=== PATIENT | female | born 1965 | race Caucasian/White ===

== ENCOUNTER 2017-03-29 06:35 | Inpatient (IN) | payer OTHER ==
[~2017-03-29] VITALS: Ht 160 cm; Wt 59.3 kg
--- NOTE | ~2017-03-29 | CON ---
PATIENT'S NAME: ERICKA GARRISON [facility] AGE: 52 Y [address] ROOM: [place] [address] LOCATION: [facility] ADMIT DATE: 03/29/2017 Consultation DISCHARGE DATE: FAMILY PHYSICIAN: PHYSICIANFER ATTENDING PHYSICIAN: Lisa Gallo DATE OF CONSULTATION: 04/12/2017 REFERRING PHYSICIAN: Dr. Silver. REASON FOR CONSULTATION: Scalp wound. HISTORY OF PRESENT ILLNESS: This is a 52-year-old female patient who was admitted to [facility] with a subarachnoid hemorrhage. She is status post left craniotomy with aneurysm clipping on 03/29/[address] Gallo. Tamms intact to left scalp. No other skin issues noted. Long-standing history of tobacco use. The patient denies pain. Fair oral intake. No constitutional symptoms. PAST MEDICAL HISTORY: Anxiety and headaches. PAST SURGICAL HISTORY: Hysterectomy, hernia repair, appendectomy. FAMILY HISTORY: Positive for diabetes and high blood pressure. SOCIAL HISTORY: The patient is from [place]. She is a pack per day smoker and has done so for the last 35 years. She denies alcohol use. ALLERGIES: NO KNOWN DRUG ALLERGIES. CURRENT MEDICATIONS: Please refer to the medication administration record. REVIEW OF SYSTEMS: Pertinent positives are addressed in HPI and all others are negative. PHYSICAL EXAMINATION: PATIENT'S NAME: ERICKA GARRISON [facility] AGE: 52 Y [address] ROOM: [place] [address] LOCATION: [facility] ADMIT DATE: 03/29/2017 Consultation DISCHARGE DATE: FAMILY PHYSICIAN: PHYSICIAN, FER ATTENDING PHYSICIAN: Lisa Gallo VITAL SIGNS: Temperature 99.1, pulse 74, respirations 16, blood pressure 154/65, pulse oximetry 95%. Height 5 feet 3 inches and weight 53.9 kg. GENERAL: The patient is alert. HEENT: Please see scalp assessment. CARDIOVASCULAR: Deferred. ABDOMEN: Flat. EXTREMITIES: No edema. Palpable pedal pulses. Heels intact. SKIN: Intact dorinda to the left scalp. Small amount of dry blood noted. No drainage. No other skin issues noted. Groin folds intact and buttocks intact. LABORATORY DATA: Please refer to the patient's chart. ASSESSMENT/PLAN: Again this is a 52-year-old female patient who was admitted to [facility] with a subarachnoid hemorrhage. She is status post left craniotomy with the aneurysm clipping. 1. Scalp incision, approximated with dorinda. Status post left craniotomy. I instructed nursing to gently cleanse scalp with soap and water daily. No need for dressing at this time. We will defer to Dr. Gallo for further care. No other skin issues noted. ZACHERY BARRY APRN FOR MD OBINNA MEHTA/winsome /[id number] d: 04/12/171911 t: 04/20/17 1156, CONSULTATION REPORT
--- NOTE | ~2017-03-29 | CON ---
PATIENT'S NAME: ANNIE GIMENEZ [facility] AGE: 51 Y [address] ROOM: [place] [address] LOCATION: GICU ADMIT DATE: 03/29/2017 Consultation DISCHARGE DATE: FAMILY PHYSICIAN: PHYSICIAN, NO ATTENDING PHYSICIAN: Lisa Gallo DATE OF CONSULTATION: 03/29/2017 REFERRING PHYSICIAN: Lisa Gallo MD REASON FOR CONSULTATION: Medical management, was in the intensive care unit. HISTORY OF PRESENT ILLNESS: Ms. Gimenez is a 51-year-old female, who is unable to give a past medical history given her current condition. According to the chart on the morning of her presentation, she had a headache at 1:00 a.m., took couple of Excedrin tablets, and then was found to be nauseous and unresponsive. The patient then according to her son was also received chest compression as well as mouth-to- mouth resuscitation in the field and was transferred to [facility] where she was found to have a ruptured aneurysm with subarachnoid hemorrhage. PAST MEDICAL HISTORY: Unknown. CURRENT MEDICATIONS: Unknown. ALLERGIES TO MEDICATIONS: Unknown. SOCIAL HISTORY: Unknown. FAMILY HISTORY: Unknown. REVIEW OF SYSTEMS: Unable to be completed given the patient's current condition. PHYSICAL EXAMINATION: GENERAL: The patient is intubated and sedated. HEART: Regular rate and rhythm. No murmurs, gallops could be noted on her exam. CHEST: Clear to auscultation bilaterally. No wheezes, rhonchi, or rales. ABDOMEN: Soft, nontender, and nondistended. She does have positive bowel PATIENT'S NAME: ANNIE GIEMNEZ [facility] AGE: 51 Y [address] ROOM: [place] [address] LOCATION: [facility] ADMIT DATE: 03/29/2017 Consultation DISCHARGE DATE: FAMILY PHYSICIAN: PHYSICIAN, NO ATTENDING PHYSICIAN: Lisa Gallo sounds. NEUROLOGIC: The patient's pupils are equal, round, and reactive to light. Limited neurological exam, completed given the patient is currently intubated, sedated with the partial postoperative paralysis. VITAL SIGNS: Stable and have been reviewed. LABORATORY DATA: Showed sodium 135, potassium 3.9, chloride 107, CO2 of 21, BUN of 12, and creatinine of 0.7. Her current glucose is 167, her AST and ALT are 26 and 19, and her alkaline phosphatase is 72. Her CBC shows a white blood cell count of 11.8, hemoglobin 11.2, hematocrit 32.5, and current platelets are 186,000. Her PT, PTT, and INR 27, 10.9, and 1.04 respectively. Her arterial blood gas showed a pH of 7.38, pCO2 of 37, pO2 of 204, and a calculated bicarbonate of 21.9 that is on 60% FiO2. ASSESSMENT AND PLAN: Ms. Annie Gimenez is a 51-year-old female, postoperative day #0 from middle cerebral artery aneurysm clipping. 1. Acute respiratory failure. 2. Acute subarachnoid hemorrhage status post middle cerebral artery aneurysm clipping. 3. Hypertension. 4. Intracranial hypertension. Plan: Given the patient's current state, we will start the patient on some nimodipine prophylactically as well as Keppra for seizure prevention. Avoid anticoagulants and provide her with SCDs as well as PPI she continues on the vent control her blood pressures with maximal blood pressure of 180 and blood pressures greater than 140, keep the patient euvolemic and lap hand tool her intracranial hypertension with hypertonic saline. I spent a total of 60 minutes of critical care time with this patient treating her respiratory failure as well as her intracranial hypertension. MD DUNG BAER/winsome /[id number] d: 04/01/17 1533 t: 04/19/17 1136, CONSULTATION REPORT
--- NOTE | ~2017-03-29 | OR ---
PATIENT'S NAME: ERICKA GARRISON [facility] AGE: 51 Y [address] 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 PROCEDURE PERFORMED: 1. Left frontotemporal craniotomy and clipping of left middle cerebral artery aneurysm. 2. Evacuation of intracerebral hematoma. 3. Placement of right frontal ventriculostomy for management of intraventricular hemorrhage. CO-SURGEON: Greg Castillo MD. ANESTHESIA: General. ANESTHESIA PROVIDER: Giuseppe Abel MD. HISTORY: The patient is a 51-year-old female who developed a sudden severe headache in the early hours of March 29, 2017. Imaging studies confirmed the ruptured left middle cerebral artery aneurysm producing subarachnoid, intraventricular, and intracerebral hemorrhages. The patient was evaluated at [facility] and then transferred to [facility] for definitive treatment. I discussed the situation with the patient's son who was the only family member present and explained the situation to him. I recommended the above procedures and discussed the benefits and risks with him. The patient's son gave consent for surgery. The patient was therefore taken to the operating room for surgery. Prior to coming to surgery, she went through a CT scan and got a CT angiogram, which confirmed the aneurysm. This was a very complex aneurysm requiring the assistance of the co-surgeon owing to its complexity and the associated hemorrhages in different parts of the brain. PROCEDURE IN DETAIL: In the operating room, the patient was placed in a PATIENT'S NAME: ERICKA GARRISON [facility] AGE: 51 Y [address] ROOM: [place] [address] LOCATION: GICU ADMIT DATE: 03/29/2017 OR/Procedure Report DISCHARGE DATE: FAMILY PHYSICIAN: PHYSICIAN, NO ATTENDING PHYSICIAN: Lisa Gallo supine position, anesthesia was induced, she was intubated, and appropriate support lines were placed. The patient had already had a Rudd catheter inserted and had received mannitol. The first procedure was insertion of a ventriculostomy. The patient's hair was clipped. The entry point for the ventriculostomy was marked out at 12.5 cm behind the right midpupillary line. The scalp was prepped and draped in a sterile fashion. Local anesthesia was infiltrated at the entry point. The incision was opened and held open with self-retaining retractors. Twist drill was used to drill a hole through the skull. The dura was coagulated. The catheter was tunneled under the scalp using a trocar. The catheter was brought out of the entry point. The catheter was inserted into the brain and blood- stained spinal fluid was obtained at first try. The ventricular catheter was then secured to the scalp. The entry point was closed with appropriate suture materials. Attention was then directed to the craniotomy. The patient's head was secured in a 3-pin Troy head sampler. Her head was turned slightly facing the right side with the neck in extension bringing the operative site to the highest point in the surgical field. An incision line was marked out in the left frontotemporal area, and the whole area was prepped and draped in a sterile fashion. Local anesthesia was infiltrated along the incision line. The incision was opened with a #10 blade. The fascia was opened separately and the muscle was also divided using the Bovie. The scalp was then peeled forward to expose the frontal and temporal areas of the skull. A scalp flap was held back with sutures attached to rubber bands. Bur holes were placed and the bur holes were connected with a footplate surrounding a flap. The dura was bulging slightly underneath the bone flap. The dura was then opened in a curvilinear fashion and flapped back over the scalp flap. The surface of the brain was heavily stained with subarachnoid and subpial blood. Hemostasis was achieved. A small opening was made into the middle temporal gyrus and almost immediately the hematoma was encountered. Using suction and gentle coagulation, the hematoma was evacuated, and the brain became even more slack with this maneuver. We then directed our attention to the area of the sylvian fissure where the aneurysm was located. Working in the sylvian fissure, some branches of the middle cerebral artery became visible. We decided to trace these branches until they led to the aneurysm. We exposed initially towards the entrance of the sylvian fissure and then retraced the arteries more towards the caudal end of the sylvian fissure, and during this process, we began to see the aneurysm. The [facility] retractor was set up and the frontal and PATIENT'S NAME: ERICKA GARRISON [facility] AGE: 51 Y [address] ROOM: [place] [address] LOCATION: [facility] ADMIT DATE: 03/29/2017 OR/Procedure Report DISCHARGE DATE: FAMILY PHYSICIAN: PHYSICIAN, NO ATTENDING PHYSICIAN: Lisa Gallo temporal lobes were gently to provide better visualization. The microscope was already brought in at this point, and a lot of this procedure was carried out under microscopic vision. As the dissection progressed, the aneurysm became more visible. It was a bilobed aneurysm with a number of blood vessels looping around the lobes of the aneurysm. This created a very challenging situation that required careful dissection of the aneurysm to prevent its rupture while at the same time preserving the vessels that were very intimately associated with the aneurysm. There was a small rupture during the procedure, but this was easily controlled with a piece of Gelfoam and cottonoid, and the blood pressure was lowered at this point, and the bleeding stopped within a very short time. We resumed dissection around the aneurysm until we were able to see all the vessels leading off from it and see most of the dome of the aneurysm. We then selected a right-angled fenestrated clip and placed this across the aneurysm neck, taking care to preserve all the surrounding vessels. We noticed that there was still some bleeding from the aneurysm even after it had been clipped and then the clip was readjusted a few times to ensure satisfactory obliteration of the aneurysm. We then noticed there was a small area of aneurysm filling from one of the lobes of the aneurysm. A smaller clip was applied across this residual dome and this sealed the aneurysm completely. A careful search was made for any compromised vessels and none of the major vessels were compromised. Irrigation was used to wash out the subarachnoid blood around the blood vessels to reduce the risk of vasospasm. Some more hematoma was evacuated from the initial cavity, which at this point had connected up to the area where the aneurysm was being dissected. The hematoma cavity was inspected to ensure that there was no bleeding going on. Some cotton ball was used to tamponade any areas of bleeding and then Surgicel was used to control the rest of the oozing. Having completed the clipping of the aneurysm, the dura was closed with a running Nurolon suture. The bone flap was replaced with mini-titanium plates. The scalp was closed in layers using appropriate suture materials and staple was used to close the skin. The patient's head was taken out of the Troy head sampler. A sterile dressing was applied to cover, both the ventriculostomy as well as the craniotomy. The patient was maintained intubated and brought back to the intensive care unit to continue her recovery. I was present during the entire procedure with Dr. Greg Castillo serving as PATIENT'S NAME: ERICKA GARRISON [facility] AGE: 51 Y [address] ROOM: [place] [address] LOCATION: [facility] ADMIT DATE: 03/29/2017 OR/Procedure Report DISCHARGE DATE: FAMILY PHYSICIAN: PHYSICIAN, NO ATTENDING PHYSICIAN: Lisa Gallo co-surgeon as mentioned earlier because of the complex nature of this aneurysm. I felt that the procedure proceeded without any significant complications. There was a slight rupture, which was controlled readily. Estimated blood loss was less than 500 mL, and there was no blood transfusion given. Swabs, needles, and instruments were all accounted for at the end of the case. The patient's prognosis is guarded at this time owing to the large size of the hemorrhage as well as the potential complications of vasospasm and hydrocephalus. With the surgery, however, the patient's main danger has been eliminated. She will be monitored in the intensive care unit for any subsequent complications. MD JAGJIT PAULINOO/modl /[id number] CC: MD Sandip Muñoz MD [place], [place] d: 04/02/17 0003 t: 08/29/17 1932, OPERATIVE SUMMARY
--- NOTE | ~2017-03-29 | OR ---
PATIENT'S NAME: ERICKA GARRISON [facility] AGE: 51 Y [address] ROOM: [place] [address] LOCATION: GICU ADMIT DATE: 03/29/2017 OR/Procedure Report DISCHARGE DATE: FAMILY PHYSICIAN: PHYSICIAN, NO ATTENDING PHYSICIAN: Lisa Gallo SURGEON: Giuseppe Abel MD WINCH DRIVER: DATE OF PROCEDURE: 03/29/2017 PROCEDURE PERFORMED: Insertion of central venous catheter. INDICATION FOR PROCEDURE: Operative hemodynamic monitoring and access. DESCRIPTION OF PROCEDURE: After a brief time-out was completed verifying the correct patient, procedure, and site, the patient was placed in a position appropriate for central line placement. The patient's left clavicle was prepped and draped in the usual sterile fashion. 1 mL of 1% lidocaine used to anesthetize the surrounding skin. Using the Seldinger technique, a 4-lumen 8.5-German 20 cm catheter was introduced into the left subclavian vein. The guidewire then was removed. Each lumen of the catheter was evacuated from air and then flushed with sterile saline. The catheter then was sutured in place, and sterile Tegaderm was applied. A postprocedural chest x-ray used to confirm the position of the catheter found the catheter to be in adequate position with no procedural complications. MD DUNG BAER/winsome /[id number] d: 04/01/17 1524 t: 04/19/17 1138, OPERATIVE SUMMARY
--- NOTE | ~2017-03-29 | CON ---
PATIENT'S NAME: ERICKA GARRISON [facility] AGE: 52 Y [address] ROOM: [id number] [place], [place] [address] LOCATION: [facility] ADMIT DATE: 03/29/2017 Consultation DISCHARGE DATE: FAMILY PHYSICIAN: PHYSICIAN, FER ATTENDING PHYSICIAN: Lisa Gallo REFERRING PHYSICIAN: Lisa Gallo MD CHIEF COMPLAINT: Headache. REASON FOR CONSULTATION: Fever, encephalopathy, and headache. HISTORY OF PRESENT ILLNESS: This is a 52-year-old female, who was admitted on March 29, 2017, because of headache and the patient was found to have ruptured left middle cerebral artery aneurysm with resultant subarachnoid, intracerebral, and intraventricular hemorrhage and also found to have a small right aneurysm that was not ruptured. The patient underwent a left frontotemporal craniotomy, clipping of the left middle cerebral artery aneurysm, evacuation of the intracerebral hematoma, and placement of right frontal ventriculostomy for management of intraventricular hemorrhage on March 29, 2017. After the procedure, the patient has been doing well and since yesterday the patient has been complaining of headache that is diffuse and for the last few days the patient has also been picking on the right frontal ventriculostomy tube that was removed a few days earlier. That area of the ventriculostomy tube has been getting swollen, red, and tender; however, without drainage. Since yesterday, the son has also noticed that the patient has been behaving confused, but no slurred speech, just that she does not answer questions and has been complaining of a headache that is diffuse, and the son noticed that the area where the ventriculostomy tube was removed has become red, swollen, and tender, and as I mentioned before, the patient has been picking with her fingers in that area for the last few days. Due to the fever of temperature 101.4 and also encephalopathy and also pain and also headache and also an inflammation and tenderness and erythema in the ventriculostomy tube area that was removed, a hospitalist consult was placed for evaluation. REVIEW OF SYSTEMS: As mentioned in the history of present illness. Only that the patient complained to me was about the headache that is diffuse, otherwise she denies any other symptoms I asked her. ALLERGIES: NONE. PATIENT'S NAME: ERICKA GARRISON [facility] AGE: 52 Y [address] ROOM: [id number] [place], [place] [address] LOCATION: [facility] ADMIT DATE: 03/29/2017 Consultation DISCHARGE DATE: FAMILY PHYSICIAN: PHYSICIAN, FER ATTENDING PHYSICIAN: Lisa Gallo HOME MEDICATIONS: At home, the patient takes: 1. Tylenol plus caffeine. 2. Excedrin tablets 1 tablet p.o. daily p.r.n. for headache. PAST MEDICAL HISTORY: None prior to this admission. SOCIAL HISTORY: Currently, the patient denies any cigarette or illegal drug or alcohol use at the present or in the past. This is according to the patient. FAMILY HISTORY: The patient could not remember details about her parents' health. PAST SURGICAL HISTORY: The patient denies any, this is per the patient's answer. Based on the records, It did show that she had a hysterectomy and also tubal ligation. PHYSICAL EXAMINATION: VITAL SIGNS: At the time of my evaluation, temperature was 101.4, heart rate was 98, blood pressure was 160/67, and saturation was 96% on room air. GENERAL APPEARANCE: Alert. Currently, the patient is not in distress. On my examination, the patient is not disoriented, but she just answers the questions very slowly and sometimes she does not answer my question. In moderate distress due to headache. HEENT: Her pupils are equally round and reactive to light. Pupil size about 4 mm bilaterally and extraocular muscles are also intact. Anicteric sclerae. Nasal turbinates are normal bilaterally. Moist oral mucosa. On the left parietal area, the scar from the incision site looks clean and no active drainage. The right frontal area where the ventriculostomy tube was removed, there is a tender bump that is red and erythematous, but no active drainage. NECK: No JVD. CARDIOVASCULAR: Regular rate and rhythm. Normal S1, S2. No murmur, no rubs, no gallops. RESPIRATORY: Clear to auscultation. No rales, no rhonchi, no wheezing, no crackles. ABDOMEN: Soft, nontender, nondistended, bowel sounds present, and no mass. EXTREMITIES: No edema in upper or lower extremities. SKIN: No ulcer, no rash, no cyanosis. NEUROLOGICAL: Cannot perform a full neurological exam given the patient does not follow commands due to her encephalopathy. No facial droop. No slurred speech and no facial droop. The patient would not cooperate to test the strength or the sensation or perform cranial nerve 2 through 12. However, she PATIENT'S NAME: ERICKA GARRISON [facility] AGE: 52 Y [address] ROOM: [id number] [place], [place] [id number] LOCATION: [facility] ADMIT DATE: 03/29/2017 Consultation DISCHARGE DATE: FAMILY PHYSICIAN: PHYSICIAN, NO ATTENDING PHYSICIAN: Lisa Gallo does comply with visual field testing and it was intact. SKIN: Scar tissue with dorinda on the left side of the head which was intact without any findings to suggest discharge or infection. On the right frontal forehead, there is a bump that is red and tender and appeared swollen, but no active drainage. LABORATORY DATA: Lactic acid 0.9. White blood cell 14.3, hemoglobin 9.6, hematocrit 28.5, platelet 427, glucose 121, BUN 12, creatinine 0.3. Sodium 137, potassium 3.7, chloride 105, CO2 of 23, calcium 8.9, total protein 6.9, albumin 3.0. AST 30, ALT 33, alkaline phosphatase 103, total bilirubin 0.3, phosphorus 4.1, magnesium 1.9. INR 0.98, PTT 24. Urinalysis from April 10, 2017, at 9:00 p.m. showed negative for UTI. GFR more than 60. Procalcitonin less than 0.05. IMAGING STUDIES: Chest was done and the official report is pending. Based on my review, it was unremarkable. CT of the head without contrast performed just now and the preliminary report was read as no new acute intracranial process. Stable left side postoperative changes. No new bleed. Trace hemorrhage in the left sylvian fissure is slightly decreased from the prior study. Please follow up with official report reading in the morning. ASSESSMENT AND PLAN: 1. Regarding her SIRS with fever, encephalopathy, and headache: The sepsis order set has been already completed and is in the chart. CT Head without contrast based on the preliminary review which I also personally spoke to the on-call radiologist, there was no finding to suggest new bleed or anything to explain the acute encephalopathy. Given that she does have leukocytosis and fever and also the right frontal headache where the ventriculostomy tube removed and it looks red, swollen, and tender possibly secondary to the patient's finger's frequent poking at that area in the last few days and may have gotten infected. 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 after midnight for possible lumbar puncture. Blood cultures already obtained, please follow up. Please also consult Infectious Disease by telephone at anytime and also this Tuesday if they are in town. Further plan depends on clinical course. I also went over the plan of care with Dr. Gallo over the phone after my PATIENT'S NAME: ERICKA GARRISON [facility] AGE: 52 Y [address] ROOM: [address] [address] LOCATION: [facility] ADMIT DATE: 03/29/2017 Consultation DISCHARGE DATE: FAMILY PHYSICIAN: PHYSICIAN, NO ATTENDING PHYSICIAN: Lisa Gallo recommendations as above. I also updated the patient's son and daughter at the bedside about the current plan of care. Chest x-ray was unremarkable. UA was unremarkable. Therefore, the focus here for now will be in the central nervous system. 2. Regarding her recent history of cerebral aneurysm, status post repair: Defer to Neurosurgery. No new head bleed on the CT of the head without contrast performed today. Further plan will depend on clinical course. Time spent in care on the day of consultation 70 minutes where 20 minutes was spent on chart review and the remaining of the time was spent on interview and physical examination, and also on counseling. The counseling includes covering Dr. Gallo to go over the plan of care with him after my recommendations and also by covering the on-call radiologist to verify the report of the CT of the head without contrast and this time also includes going over plan of care with the patient's son, the patient, and the patient's daughter at the bedside and answered all their questions and concerns to their satisfaction, and I went over the plan of care in detail with each one of them in person. Further plan will depend on clinical course. ETTA HOUGH MD CC/lindyl /[id number] d: t: 04/11/17 0801, CONSULTATION REPORT
--- NOTE | ~2017-03-29 | HP ---
PATIENT'S NAME: ANNIE GIMENEZ [facility] AGE: 51 Y [address] ROOM: [place] [address] LOCATION: [facility] ADMIT DATE: 03/29/2017 History & Physical DISCHARGE DATE: FAMILY PHYSICIAN: PHYSICIAN, UNKNOWN ATTENDING PHYSICIAN: Lisa Gallo DATE OF SERVICE: 03/29/2017 PATIENT IDENTIFICATION: Annie Gimenez is a 51-year-old female. PRESENTING COMPLAINT: Headache. HISTORY OF PRESENT ILLNESS: History was obtained from referring physician as the patient herself is unable to provide a history at this time. According to the referring physician, the patient had a sudden onset of severe headache about 1:00 a.m. this morning. She also had nausea and became unresponsive. The patient has had a history of chronic frequent headaches and takes Excedrin regularly. She took 2 tablets at midnight last night. According to the patient's son, the patient also had some elevated blood pressure while at the dentist 4 days ago. With the onset of her headache this morning and reduced responsiveness, she was taken to the emergency room at [facility]. She was evaluated and a CT of her head showed a ruptured aneurysm with subarachnoid hemorrhage. The patient was therefore transferred to [facility] for evaluation and treatment. PAST MEDICAL HISTORY: Significant for previous hysterectomy and tubal ligation. There is no history of any heart problems or strokes. CURRENT MEDICATIONS: Not available at this time. ALLERGIES: NONE. 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 PATIENT'S NAME: ANNIE GIMENEZ [facility] AGE: 51 Y [address] ROOM: [place] [address] LOCATION: [facility] ADMIT DATE: 03/29/2017 History & Physical DISCHARGE DATE: FAMILY PHYSICIAN: PHYSICIAN, UNKNOWN ATTENDING PHYSICIAN: Lisa Gallo FAMILY HISTORY: There is no family history available at this time. REVIEW OF SYSTEMS: Unable to obtain a full review of systems as the patient is not very responsive currently. PHYSICAL EXAMINATION: GENERAL: On examination, the patient is a middle-aged female, who was met on arrival in the ER at 6:50 a.m. on March 29, 2017. She was on a gurney. VITAL SIGNS: In the ER, blood pressure systolic in the 130s. The patient had already received some labetalol en route. NEUROLOGIC: The patient is drowsy. She is nonverbal. She grunts to pain and tries to open her eyes. The patient moves her left side to localization. She flexes the right side. She is noticeably weaker in the right arm. EYES: Pupils are 3 mm bilaterally and reactive. CARDIOVASCULAR: Heart sounds present. RESPIRATORY: The patient is breathing spontaneously. GENITOURINARY: The patient has a Rudd catheter in place. HEAD: Her head is atraumatic. EYES AND EARS: No evidence of trauma. SKIN: No skin rashes or skin masses. REVIEW OF IMAGING STUDIES: The patient has had a head CT scan performed in [place]. The CT scan shows a hemorrhage in the left temporal lobe with associated subarachnoid hemorrhage and intraventricular hemorrhage. Appearances are consistent with a ruptured left middle cerebral artery aneurysm with intracerebral, intraventricular, and subarachnoid hemorrhage. TREATMENT RENDERED: The patient was started on mannitol to control her increased intracranial pressure. She was already on labetalol for blood pressure control as well. She was then taken to the CT scan suite and had a CT angiogram. The CT angiogram confirmed a 6 mm left middle cerebral artery aneurysm. This is likely the source of the patient's hemorrhage. The patient was taken from the CT suite directly to the OR, got into the OR room at 7:30 a.m. I spoke to the patient's son while she was having a CT scan and explained the situation to him. I discussed with him that the patient has a life-threatening condition, a ruptured aneurysm and that the patient is being taken to the operating room for surgery. I discussed the procedure of ventriculostomy placement as well as craniotomy and clipping of aneurysm with the patient's son. I discussed the risks of the surgery including , stroke, and residual disability. I also discussed the benefits, which would PATIENT'S NAME: ANNIE GIMENEZ [facility] AGE: 51 Y [address] ROOM: [id number] [place], [place] [address] LOCATION: [facility] ADMIT DATE: 03/29/2017 History & Physical DISCHARGE DATE: FAMILY PHYSICIAN: PHYSICIAN, UNKNOWN ATTENDING PHYSICIAN: Lisa Gallo be to remove the hemorrhage and try and prevent a repeat hemorrhage by clipping the aneurysm. The patient's son understood the benefits and risks of the procedure and gave consent to proceed. At this time, the patient is in the operating room, getting ready for surgery. MD KAYDEN PAULINO/winsome /[id number] D: [id number] T: [id number] HISTORY & PHYSICAL
--- NOTE | ~2017-03-29 | CON ---
PATIENT'S NAME: ERICKA GARRISON [facility] AGE: 51 Y [address] ROOM: [place] [address] LOCATION: [facility] ADMIT DATE: 03/29/2017 Consultation DISCHARGE DATE: FAMILY PHYSICIAN: PHYSICIAN, NO ATTENDING PHYSICIAN: Lisa Gallo REFERRING PHYSICIAN: Lisa Gallo MD Consult for Dr. Gallo. This 51-year-old lady is referred for [facility] rehab evaluation. She is status post: 1. Left frontotemporal craniotomy and clipping of the left middle cerebral artery aneurysm. 2. Evacuation of intracerebral hemorrhage on the left side of the brain. 3. Placement of right frontal ventriculostomy drain to manage intraventricular hemorrhage, which is now discontinued. The surgery was done on 03/29/2017, details on record. HISTORY AND PHYSICAL: She had severe headache, did have nausea and vomiting and then she was unresponsive, has history of possible hypertension and migraine. She is now on ICU, alert, not able to orient at all. She is able to talk. Her voice is clear, but she is with short attention span, apraxic at time, on and off needing modeling, sometimes she is disoriented and agitated easily. She has short attention span and cannot really bring out what she wants to say. Vitals: Blood pressure 210/87 to 174/85, temperature 101.5 to 99.5, pulse 80, respirations 20. She is 5 feet 3 inches and weighs 61.4 kg. Her voice is clear and not wet. Tongue and soft palate are moving symmetrical. There is no facial droop at the present time. There is no visual cut or neglect. She is easily agitated and can move all 4 without difficulty, maybe a little bit slower on the left side, less coordinated rather than slower. MEDICATIONS: She is on the following medications: 1. MOM. 2. Florinef. 3. Mannitol. 4. NaCl 0.9%. PATIENT'S NAME: ERICKA GARRISON [facility] AGE: 51 Y [address] ROOM: [place] [address] LOCATION: [facility] ADMIT DATE: 03/29/2017 Consultation DISCHARGE DATE: FAMILY PHYSICIAN: PHYSICIAN, NO ATTENDING PHYSICIAN: Lisa Gallo 5. Johnson-Synephrine. 6. Hypertonic saline. 7. Labetalol. 8. Mag sulfate. 9. Nicotine patch. 10. Apresoline. 11. Dilaudid. 12. Nimotop. 13. Glucagon. 14. Dextrose. 15. Glucose. 16. Insulin regular aggressive scale. 17. Tylenol. 18. Artificial Tears. 19. Keppra. 20. K phosphate. 21. KCl. ASSESSMENT AND PLAN: We will start her on PT, OT, speech. Please see the orders. I plan to follow on her and if she is not able to be discharged to home on taking care at home, I will re-evaluate for rehab admission. At the present time, she has good ability to move all 4. We will watch her alongside with you. Thank you for this referral. I did explain all this to her daughter. She verbalized understanding and agreement. MD EUGENIO ALLEN/modl /[id number] d: 04/05/171902 t: 04/06/17 07, CONSULTATION REPORT
[2017-03-29 08:37] LABS: BASOPHIL % 0.3 %; HEMATOCRIT 32.5 % (33.0-46.0); HEMOGLOBIN 11.2 g/dL (10.0-15.0); IMMATURE GRANULOCYTE # 0.1 K/uL (0.0-0.3); IMMATURE GRANULOCYTE % 0.4 %; LYMPHOCYTE # 0.4 K/uL (0.8-4.0); LYMPHOCYTE % 3.2 %; MCH 33.5 pg (27.0-34.0); MCHC 34.5 gm/dL (32.0-36.5); MCV 97.3 fl (83.0-98.0); MONOCYTE # 0.8 K/uL (0.0-1.0); MONOCYTE % 6.5 %; MPV 9.3 fl (9.4-12.4); NEUTROPHIL # (ANC) 10.6 K/uL (1.8-7.8); NEUTROPHIL % 89.6 %; NRBC % 0 /100WBC (0-0.00); PLATELET COUNT 186 K/uL (150-450); RBC 3.34 M/uL (3.50-5.50); RDW-CV 12.6 % (11.9-14.6); WBC 11.8 K/uL (4.0-11.0)
[2017-03-29 08:45] LABS: INR - (THERAPEUTIC) 1.04 (0.92-1.07); PROTIME 10.9 SECONDS (9.8-11.4); PTT 27 SECONDS (25-32)
[2017-03-29 08:53] LABS: ALBUMIN 2.9 gm/dL (3.5-5.0); ALK PHOS 72 IU/L (33-138); ALT 19 IU/L (12-78); ANION GAP 10.9 (10.0-19.0); AST 26 IU/L (10-40); BLOOD UREA NITROGEN 12 mg/dL (6-24); CHLORIDE 107 mMol/L (96-110); CO2 21 mMol/L (22-32); CREATININE 0.7 mg/dL (0.5-1.1); POTASSIUM 3.9 mMol/L (3.7-5.1); SODIUM 135 mMol/L (135-145); TOTAL BILIRUBIN 0.3 mg/dL (0.0-1.5); TOTAL PROTEIN 5.6 g/dL (6.0-8.4)
[2017-03-29 14:18] LABS: BICARBONATE 22.1 mmol/L (18.0-23.0); PCO2 43 mmHg (35-45); PO2 432 mmHg (80-90); SODIUM 137 mEq/L (135-145)
[2017-03-29 14:19] LABS: POTASSIUM 4.3 mEq/L (3.7-5.1)
[2017-03-29 15:16] LABS: BICARBONATE 21.9 mmol/L (18.0-23.0); PCO2 37 mmHg (35-45)
[2017-03-29 15:18] LABS: PO2 204 mmHg (80-90)
--- NOTE | 2017-03-29 18:00 | NUR ---
SIGNIFICANT EVENT: PATIENT NOT ON ANY SEDATION DRIPS CURRENTLY AND SINCE 1500 HOUR. PATIENT WAS ON PROPOFOL. PATIENT DOES NOT OPEN EYES SPONT OR TO VOICE. PUPILS EQUAL, SLUGGISH REACTION. PATIENT HAS R) ICP/VENTRIC, INTACT, NO COMPLICATIONS. VENTRIC OPEN AT ALL TIMES PER MD ORDER. ICP 0-8. TOTAL OF 35ML OF CSF DRAINED THIS SHIFT, PIN-BLOOD TINGED. PATIENT WITHDRAWS TO PAIN IN ALL BUR R) UPPER EXTREMITY. VERY SLIGHT SPONT MOVEMEMENTS NOTED AT THE END OF THE SHIFT. PATIENT HAS BEEN IN SINUS RHYTHM, SIENA AT TIMES, HR 45-55. PULSES PALPABLE THROUGHOUT. BP STABLE, HYDRALAZINE 10 MG IV GIVEN X1 FOR SBP 170-180S PER MD ORDER. CPP GOAL 65-100, SBP LESS THAN 150. AFEBRILE. PATIENT CONTINUES TO REQUIRE VENT SUPPORT, SATS 99-100%/ PEEP 5, TV 450, RR 15 A/C MODE 60% FIO2, OVERBREATHS VENT SETTINGS. BOWEL SOUNDS PRESENT, NO BM. AGUILAR INTACT, ADEQUATE URINE OUTPUT. NO NEW SKIN ISSUES NOTED. R) SUBCLAVIAN IV INFUSING NS WITH KCL AT 75ML/HR, NO COMPLICATIONS. 2 PIV SALINE LOCKED, NO COMPLICATIONS. FOLLOW UP: CONT TO MONITOR, HOURLY NEUROS. REPORT ANY ABNORMALITITES
[2017-03-29 20:01] LABS: BICARBONATE 22.1 mmol/L (18.0-23.0); PCO2 40 mmHg (35-45)
[2017-03-29 20:02] LABS: PO2 130 mmHg (80-90)
[2017-03-29 20:15] LABS: ALBUMIN 3.1 gm/dL (3.5-5.0); BLOOD UREA NITROGEN 9 mg/dL (6-24); CALCIUM 8.2 mg/dL (8.5-10.5); CO2 21 mMol/L (22-32); CREATININE 0.6 mg/dL (0.5-1.1); PHOSPHORUS 3.9 mg/dL (2.5-4.9)
[2017-03-29 20:17] LABS: CHLORIDE 117 mMol/L (96-110); SODIUM 146 mMol/L (135-145)
--- NOTE | 2017-03-30 03:47 | NUR ---
Patient currently ventilated. FiO2 weaned down to 40% this shift. O2 sats were 100% throughout the shift. ETCO2 was 29. Breathsounds clear in the upper lobes bilaterally and clear and diminished in the bases bilaterally. Suctioning scant to small amounts of amy thick secretions. Will continue to monitor patient.
[2017-03-30 04:18] LABS: BICARBONATE 21.9 mmol/L (18.0-23.0); LACTATE 1.1 mEq/L (0.50-1.60); PCO2 37 mmHg (35-45)
[2017-03-30 04:19] LABS: PO2 158 mmHg (80-90)
[2017-03-30 04:40] LABS: ALBUMIN 2.9 gm/dL (3.5-5.0); ALK PHOS 65 IU/L (33-138); ALT 22 IU/L (12-78); AST 37 IU/L (10-40); BLOOD UREA NITROGEN 9 mg/dL (6-24); CALCIUM 8.1 mg/dL (8.5-10.5); CO2 21 mMol/L (22-32); CREATININE 0.6 mg/dL (0.5-1.1); PHOSPHORUS 2.3 mg/dL (2.5-4.9); POTASSIUM 3.5 mMol/L (3.7-5.1); TOTAL PROTEIN 5.8 g/dL (6.0-8.4)
[2017-03-30 04:41] LABS: ANION GAP 11.5 (10.0-19.0); CHLORIDE 120 mMol/L (96-110); SODIUM 149 mMol/L (135-145); TOTAL BILIRUBIN 0.5 mg/dL (0.0-1.5)
[2017-03-30 04:51] LABS: BASOPHIL % 0.1 %; HEMOGLOBIN 10.6 g/dL (10.0-15.0); IMMATURE GRANULOCYTE # 0.1 K/uL (0.0-0.3); IMMATURE GRANULOCYTE % 0.4 %; LYMPHOCYTE # 0.5 K/uL (0.8-4.0); LYMPHOCYTE % 3.7 %; MCH 32.8 pg (27.0-34.0); MCHC 33.1 gm/dL (32.0-36.5); MCV 99.1 fl (83.0-98.0); MONOCYTE # 1.1 K/uL (0.0-1.0); MONOCYTE % 7.4 %; MPV 10.1 fl (9.4-12.4); NEUTROPHIL # (ANC) 12.6 K/uL (1.8-7.8); NEUTROPHIL % 88.4 %; NRBC % 0 /100WBC (0-0.00); PLATELET COUNT 192 K/uL (150-450); RBC 3.23 M/uL (3.50-5.50); RDW-CV 13.5 % (11.9-14.6); WBC 14.2 K/uL (4.0-11.0)
[2017-03-30 04:56] LABS: PROTIME 10.5 SECONDS (9.8-11.4)
--- NOTE | 2017-03-30 05:32 | NUR ---
Significant Event: Pt is currently sedated with propofol. She had become increasingly more restless and agitated this shift, and sedation was restarted. She will open eyes spontaneously when propofol is off, does not track. Moves all extremities spontaneously, does not follow any commands. ICP and Ventric in place to the R) side of head. 10 cm above water. Open at all times. 3% NS bolus given this shift for increased ICP's. Pupils are equal and reactive. Pt has been hypertensive this shift, and PRN hydralazine given x3. Pt remains on the vent in A/C. OG in place to LIS. Bowel sounds are hypoactive, no BM this shift. Rudd cath in place with good urine output this shift. PIV x2, L) quad IJ, R) radial ART line. Follow up: Transcranial doppler in the AM
[2017-03-30] MEDS ORDERED: EXCEDRIN TENSI1 EACH PO (10:47)
[2017-03-30 12:13] LABS: POTASSIUM 3.4 mMol/L (3.7-5.1)
[2017-03-30 12:19] LABS: ANION GAP 10.4 (10.0-19.0)
--- NOTE | 2017-03-30 12:44 | NUR ---
Introduced self and role of care management to one of patient's daughters and an ex sister in law. Patient lives in [place], [place] with her boyfriend and several of her adult children. Daughter says she is in college and the youngest of her siblings. She says patient is self pay and does not have insurance. She asks about disability paperwork. She does have a financial assistance form for [employer] and encouraged her to work with her siblings to complete the form. Told her I will make a referral to the [facility] [facility] and they will be able to assist them with medicaid and disability applications. Daughter is anxious to start on the paperwork. Did talk briefly about inpatient rehab and the options. Did explain to her without a pay source ot facilities won't probably accept her. Told her we have an inpt rehab unit that would be an option, later on. Her aunt says she has had a family member on the rehab unit here and they got excellent care. Will follow.
--- NOTE | 2017-03-30 17:25 | NUR ---
PT OPENS EYES SPONT, DOES NOT FOLLOW COMMANDS, MOVE ALL EXT SPONT AND APPEARS EQUALLY. ICP'S 3-17 AND CPP'S 60-90'S, HYDRALAZINE GIVEN X1 D/T CPP 110'S AND SBP >180. 134MLS BLD-TINGED DRNG FROM VENTRIC, AND REMAINS OPEN AND CLOSED HOURLY FOR READINGS. T-MAX 99.4, AND RESOLVED ON IT'S OWN, PULSES 2+ T/O, NO EDEMA. LS CLEAR, EXTUBATED AROUND 1145 TO 2LNC AND SATS UPPER 90'S, WITH RR TEEN-20'S. AGUILAR WITH ADEQ UOP, NO BM, BS HYPO, NO FLATUS. R) NARE DOBHOFF AT 60CM AND USED FOR NIMOTOP DOSES. CVP 6-15, R) RADIAL A-LINE IN PLACE, L) SC WORKING WELL WITH PIV X2 S.L. BILAT WRIST RESTRAINTS IN PLACE D/T PT THRASHING AND ATTEMPT TO PURPOSEFULLY PULL AT MEDICAL EQUIP WHEN UNTIED. NS CONT AT 125MLS/HR WITH KPHOS AND MG GIVEN TODAY. YA IV KEPPRA CONTINUES.
[2017-03-30 20:16] LABS: BICARBONATE 21.7 mmol/L (18.0-23.0); PCO2 32 mmHg (35-45)
[2017-03-30 20:19] LABS: PO2 65 mmHg (80-90)
[2017-03-30 20:36] LABS: ALBUMIN 2.7 gm/dL (3.5-5.0); ANION GAP 11.5 (10.0-19.0); BLOOD UREA NITROGEN 10 mg/dL (6-24); CHLORIDE 119 mMol/L (96-110); CO2 21 mMol/L (22-32); CREATININE 0.5 mg/dL (0.5-1.1); PHOSPHORUS 2.3 mg/dL (2.5-4.9); POTASSIUM 3.5 mMol/L (3.7-5.1); SODIUM 148 mMol/L (135-145)
[2017-03-31 04:15] LABS: BICARBONATE 21.4 mmol/L (18.0-23.0); LACTATE 0.8 mEq/L (0.50-1.60); PCO2 33 mmHg (35-45); PO2 63 mmHg (80-90)
[2017-03-31 04:32] LABS: ALBUMIN 2.7 gm/dL (3.5-5.0); ALK PHOS 69 IU/L (33-138); ALT 17 IU/L (12-78); ANION GAP 11.5 (10.0-19.0); AST 22 IU/L (10-40); BLOOD UREA NITROGEN 11 mg/dL (6-24); CALCIUM 8.3 mg/dL (8.5-10.5); CHLORIDE 122 mMol/L (96-110); CO2 21 mMol/L (22-32); CREATININE 0.5 mg/dL (0.5-1.1); MAGNESIUM 2.2 mg/dL (1.8-2.6); PHOSPHORUS 1.5 mg/dL (2.5-4.9); POTASSIUM 3.5 mMol/L (3.7-5.1); SODIUM 151 mMol/L (135-145); TOTAL BILIRUBIN 0.5 mg/dL (0.0-1.5); TOTAL PROTEIN 5.9 g/dL (6.0-8.4)
[2017-03-31 04:35] LABS: BASOPHIL % 0.1 %; HEMATOCRIT 30.1 % (33.0-46.0); HEMOGLOBIN 10.2 g/dL (10.0-15.0); IMMATURE GRANULOCYTE # 0.1 K/uL (0.0-0.3); IMMATURE GRANULOCYTE % 0.7 %; LYMPHOCYTE # 0.8 K/uL (0.8-4.0); LYMPHOCYTE % 5.4 %; MCH 33.8 pg (27.0-34.0); MCHC 33.9 gm/dL (32.0-36.5); MCV 99.7 fl (83.0-98.0); MONOCYTE # 0.9 K/uL (0.0-1.0); MONOCYTE % 6.2 %; MPV 10.5 fl (9.4-12.4); NEUTROPHIL # (ANC) 12.1 K/uL (1.8-7.8); NEUTROPHIL % 87.6 %; NRBC % 0 /100WBC (0-0.00); PLATELET COUNT 176 K/uL (150-450); RBC 3.02 M/uL (3.50-5.50); RDW-CV 14.1 % (11.9-14.6); WBC 13.8 K/uL (4.0-11.0)
[2017-03-31 04:41] LABS: INR - (THERAPEUTIC) 1.02 (0.92-1.07); PROTIME 10.7 SECONDS (9.8-11.4)
--- NOTE | 2017-03-31 06:16 | NUR ---
Significant Event: Pt has remained aphasic throughout this shift. She will open her eyes spontaneoulsy and to stimulation at times. Pupils have been equal and reactive. ICP/Ventric in place, 10 cm above water. Open at all times, and has been having blood tinged output. 3% NS bolus given this shift for increased ICP's She moves all extremities spontaneously, does not follow any commands. Has been restless and agitated at times. Pt has been hypertensive throughout this shift, PRN hydralazine given x6 to keep SBP less than 180. Swelling to the L) eye this shift. Afebrile. Pt was started on high flow NC at the end of this shift due to increased O2 demands. Dobhoff in place. Bowel sounds are hypoactive, no BM this shift. Rudd cath in place with adequate urine output. PIV's and L) subclavian in place. Follow up: Continue to monitor neuro. Continue to monitor Blood pressures
--- NOTE | 2017-03-31 12:17 | NUR ---
Spoke [place] with Dominique last evening and today. She says to have patient's daughter give her a call to set up a time to meet. Gave daughter Luli's contact information. Daughter says she will call Luli and set up a time to meet when her brother and sister are also here. She says they will be back this afternoon. Will follow.
[2017-03-31 13:26] LABS: POTASSIUM 3.3 mMol/L (3.7-5.1)
[2017-03-31 13:29] LABS: ANION GAP 10.3 (10.0-19.0)
--- NOTE | 2017-03-31 15:15 | NUR ---
A - PT SEEN D/T INITIATION OF EN. PT S/P CRANI. ICP/VENTRIC IN PLACE. ON HI-FLOW NC. NA+ 150, K+ 3.3, GLU 130, BUN/INSURANCE JOB TITLES 11/0.5, ALB 2.7, WBC 13.8. MEDS REVIEWED. OSMOLITE 1.5 STARTED AT 10 ML/HR VIA DOBHOFF. EST NEEDS: [id number] KCALS, 76-95 GM PROTEIN, 1 ML/KCAL FLUIDS. D - AT RISK W/ INADEQUATE ORAL INTAKE R/T DECREASED LOC AND SOB AEB EN. I - GOAL: TO MEET 100% OF NEEDS VIA EN. M/E - GOAL RATE FOR OSMOLITE 1.5 IS 50 ML/HR = 1800 KCALS, 75 GM PROTEIN, 914 ML FREE H20. WILL F/U IN 2-4 DAYS.
--- NOTE | 2017-03-31 18:30 | NUR ---
Significant Event: Fluctuating LOC from drowsy to agitated throughout the day; irritable. Has said "what" and "no" today. Ventriculostomy open continuously with blood tinged CSF output. Started TF per Dobhoff this afternoon. Family present most of the day. Follow up: continue
[2017-03-31 20:28] LABS: ALBUMIN 2.5 gm/dL (3.5-5.0); ANION GAP 12.3 (10.0-19.0); BLOOD UREA NITROGEN 12 mg/dL (6-24); CALCIUM 8.1 mg/dL (8.5-10.5); CHLORIDE 123 mMol/L (96-110); CO2 21 mMol/L (22-32); CREATININE 0.5 mg/dL (0.5-1.1); PHOSPHORUS 2.1 mg/dL (2.5-4.9); POTASSIUM 3.3 mMol/L (3.7-5.1); SODIUM 153 mMol/L (135-145)
[2017-03-31 22:46] LABS: BICARBONATE 20.9 mmol/L (18.0-23.0); PCO2 28 mmHg (35-45); PO2 88 mmHg (80-90)
[2017-04-01 04:21] LABS: BICARBONATE 22.4 mmol/L (18.0-23.0); LACTATE 0.8 mEq/L (0.50-1.60); PCO2 33 mmHg (35-45)
[2017-04-01 04:22] LABS: PO2 153 mmHg (80-90)
[2017-04-01 04:40] LABS: BASOPHIL % 0.2 %; HEMOGLOBIN 9.6 g/dL (10.0-15.0); IMMATURE GRANULOCYTE # 0.1 K/uL (0.0-0.3); IMMATURE GRANULOCYTE % 0.9 %; LYMPHOCYTE # 0.7 K/uL (0.8-4.0); LYMPHOCYTE % 6.7 %; MCHC 33.1 gm/dL (32.0-36.5); MCV 99.7 fl (83.0-98.0); MONOCYTE # 0.8 K/uL (0.0-1.0); MONOCYTE % 7.2 %; MPV 10.4 fl (9.4-12.4); NEUTROPHIL # (ANC) 8.8 K/uL (1.8-7.8); NRBC % 0 /100WBC (0-0.00); PLATELET COUNT 170 K/uL (150-450); RBC 2.91 M/uL (3.50-5.50); RDW-CV 14.3 % (11.9-14.6); WBC 10.4 K/uL (4.0-11.0)
[2017-04-01 04:43] LABS: ALBUMIN 2.5 gm/dL (3.5-5.0); ALK PHOS 70 IU/L (33-138); ALT 16 IU/L (12-78); AST 18 IU/L (10-40); BLOOD UREA NITROGEN 11 mg/dL (6-24); CO2 22 mMol/L (22-32); CREATININE 0.5 mg/dL (0.5-1.1); MAGNESIUM 2.3 mg/dL (1.8-2.6); PHOSPHORUS 2.3 mg/dL (2.5-4.9); POTASSIUM 3.3 mMol/L (3.7-5.1); TOTAL BILIRUBIN 0.5 mg/dL (0.0-1.5); TOTAL PROTEIN 5.9 g/dL (6.0-8.4)
[2017-04-01 04:47] LABS: ANION GAP 11.3 (10.0-19.0); CHLORIDE 122 mMol/L (96-110); SODIUM 152 mMol/L (135-145)
--- NOTE | 2017-04-01 05:41 | NUR ---
Significant Event: PATIENT IS ABLE TO PUT TOGETHER SMALL SENTENCES. APHASIC AT TIMES. ALERT. FOLLOWS COMMANDS X4, INCONSISTENTLY. MOVES ALL EXTREMITIES PURPOSEFUL. RESTLESS AND AGITATED AT TIMES. DILAUDID X6 FOR RESTLESSNESS. ICP/VENT IN PLACE, 10CM ABOVE H20. OPEN AT ALL TIMES. BLOOD TINGED OUTPUT. ICPS 8-18. VENTRIC OUTPUT, 138ML. HYDRALAZINE GIVEN X1 TO KEEP SBP LESS THAN 180. HR'S 50'S-100'S. TMAX 99.9. TYLENOL GIVEN. HIGH-FLOW THROUGHOUT THE SHIFT 50%. O2 SATS 88-98%. HYPOACTIVE BS. NO BM DURING SHIFT. TF OSMOLITE AT 10ML/HR. NO RESIDUALS. AGUILAR TO DD WITH ADEQ UOP. SWELLING DECREASED IN LEFT EYE, PT ABLE TO OPEN EYE. Follow up:
[2017-04-01 11:45] LABS: POTASSIUM 4.2 mMol/L (3.7-5.1)
[2017-04-01 11:46] LABS: ANION GAP 10.2 (10.0-19.0)
--- NOTE | 2017-04-01 13:00 | NUR ---
Spoke with patient's oldest son and 2 daughters. Son initially did not want to share information, but once he understood my role they did talk with me. Oldest son and youngest daughter, live with patient in [place], [place]. Her S.O. also lives with them. They say they are working with him on decisions, etc. She also has 2 other sons that are in the service. Her son that is here is the oldest. She does not have POA paperwork. They are wanting her to get medicaid and their aunt told them the hospital could help them get it quickly. Told them the medicaid process is not usually quick but the staff from [facility] can help them with them application process and follow up. Asked them if they have contacted Luli with [facility] to set up a meeting. They have not but son says they will. Told them Mom will have to be able to sign a form and give some information for them to work on the application and it seems like she will be able to do that. Explained to them medicaid requires POA paperwork or the patient to be able to give consent for family to be involved. They voice understanding. They will call Luli to set an appointment up. They say mom will not want to go to a [facility] and they won't let her go to a [facility]. Told them about our inpatient rehab unit and that she probably will go there at some point. Son talks about facilities in [place]. Explained to him most facilities will not accept a self pay patient, so she will stay here until medicaid is pending or able to be at home. Talked to them about help at home and they say they are all avaibable to help around their work/school schedules and her S.O. will also help. Will follow.
--- NOTE | 2017-04-01 17:16 | NUR ---
SIGNIFICANT EVENT: PATIENT ALERT, OPENS EYES SPONT AND TO VOICE. PUPILS EQUAL AND REACTIVE. SPEECH IS CLEAR. FREQUENT CONFUSED AND FORGETFUL COMMENTS. ORIENTED TO SELF AND TIME. PATIENT MOVES ALL 4 EXTREMITIES SPONT AND TO COMMANDS. R) UPPER EXTREMITY SLIGHTLY WEAKER THAN L) UPPER EXTREMITY. PATIENT OCCASIONALLY NODS YES TO NUMBNESS/TINGLING. EXPRESSIVE APHASIA NOTED. R) ICP AND VENTRIC INTACT, NO DRAINAGE AROUND SITE. ICP 4-13 THIS SHIFT. VENTRIC OPEN AT ALL TIMES PER MD ORDER, TOTAL OF 134 ML BLOOD TINGED CSF DRAINED THIS SHIFT. PATIENT HAS BEEN IN SINUS RHYTHM, SIENA AT TIMES. HE 57-60S. PULSES PALPABLE THROUGHOUT. BP HYPERTENSIVE, SBP 140-190S (MD AWARE AND OKAY WITH IT) SCHEDULED HYDRALAZINE AND ALL BP MEDS GIVEN, MAP>65, CPP 65-100. AFEBRILE. BOWEL SOUNDS ACTIVE, NO BM. TUBE FEEDING OSMO 1.5 AT 40 ML/HR, TOLERATING WELL, MINIMAL RESIDUALS. AGUILAR INTACT, ADEQUATE URINE OUTPUT. NO NEW SKIN ISSUES NOTED. BATH COMPLETED THIS SHIFT. REPOSITIONED EVERY 2 HOURS. FOLLOW UP: CONT TO MONITOR, INCREASE T.F RATE TO 50ML/HR AT 2100
[2017-04-01 20:29] LABS: ALBUMIN 2.4 gm/dL (3.5-5.0); BLOOD UREA NITROGEN 8 mg/dL (6-24); CALCIUM 7.7 mg/dL (8.5-10.5); CO2 24 mMol/L (22-32); CREATININE 0.5 mg/dL (0.5-1.1); POTASSIUM 3.5 mMol/L (3.7-5.1)
[2017-04-01 20:31] LABS: ANION GAP 9.5 (10.0-19.0); CHLORIDE 119 mMol/L (96-110); PHOSPHORUS 1.7 mg/dL (2.5-4.9); SODIUM 149 mMol/L (135-145)
[2017-04-02 04:02] LABS: ALBUMIN 2.5 gm/dL (3.5-5.0); ALK PHOS 80 IU/L (33-138); ALT 23 IU/L (12-78); AST 25 IU/L (10-40); BLOOD UREA NITROGEN 8 mg/dL (6-24); CALCIUM 8.1 mg/dL (8.5-10.5); CO2 22 mMol/L (22-32); CREATININE 0.4 mg/dL (0.5-1.1); MAGNESIUM 2.2 mg/dL (1.8-2.6); PHOSPHORUS 3.2 mg/dL (2.5-4.9); POTASSIUM 4.1 mMol/L (3.7-5.1); TOTAL BILIRUBIN 0.5 mg/dL (0.0-1.5); TOTAL PROTEIN 6.1 g/dL (6.0-8.4)
[2017-04-02 04:03] LABS: ANION GAP 11.1 (10.0-19.0); CHLORIDE 119 mMol/L (96-110); SODIUM 148 mMol/L (135-145)
[2017-04-02 04:06] LABS: BASOPHIL % 0.3 %; HEMATOCRIT 29.4 % (33.0-46.0); HEMOGLOBIN 9.8 g/dL (10.0-15.0); IMMATURE GRANULOCYTE # 0.1 K/uL (0.0-0.3); IMMATURE GRANULOCYTE % 0.6 %; LYMPHOCYTE % 10.8 %; MCH 33.1 pg (27.0-34.0); MCHC 33.3 gm/dL (32.0-36.5); MCV 99.3 fl (83.0-98.0); MONOCYTE # 0.7 K/uL (0.0-1.0); MONOCYTE % 7.5 %; MPV 10.8 fl (9.4-12.4); NEUTROPHIL # (ANC) 7.1 K/uL (1.8-7.8); NEUTROPHIL % 80.8 %; NRBC % 0 /100WBC (0-0.00); PLATELET COUNT 194 K/uL (150-450); RBC 2.96 M/uL (3.50-5.50); RDW-CV 13.9 % (11.9-14.6); WBC 8.8 K/uL (4.0-11.0)
--- NOTE | 2017-04-02 05:42 | NUR ---
Significant Event: Disoriented to time and place, able to state name and toward am. Follows most commands. Restless and agitated at times. During agitation ICP > 20 but does decrease at rest. MD aware. Ventric open at all times with blood tinged drainage. Hypertensive with SBPs in 200s at times. PRN hydralazine given x2. CPPs 70s-100s. Max temp of 100.4 with PRN tylenol given x1. Changed from high flow to 6L NC due to patient agitation. Dobhoff removed by patient and replaced. TF at 50 which is goal with no residuals. No BM. 1 gram MG replaced per sliding scale. 30 mmol Kphos given. PRN dilaudid given x4 with relief. Follow up: Continue to monitor BP and neurological status.
--- NOTE | 2017-04-02 09:11 | NUR ---
A - NUTRITION F/U. A/O X 1. ICP/VENTRIC IN PLACE. PT ON 6L O2 PER NC. NA+ 148, GLU 167, BUN/FERMENTER 8/0.4, ALB 2.5. TF OSMOLITE 1.5 AT 50 ML/HR = 1800 KCALS, 75 GM PROTEIN, 914 ML FREE H20. NS AT 100 ML/HR. D - AT RISK W/ DIFFICULTY SWALLOWING R/T NEUROMUSCULAR DYSFUNCTION AEB NEED FOR EN. I - GOAL: CONT FULL SUPPORT. M/E - F/U IN 3-5 DAYS.
[2017-04-02 13:44] LABS: POTASSIUM 3.7 mMol/L (3.7-5.1)
[2017-04-02 13:45] LABS: ANION GAP 10.7 (10.0-19.0)
--- NOTE | 2017-04-02 17:35 | NUR ---
PT ALERT TO SELF, BUT DISORIENTED TO TIME/PLACE, DOES NOT FOLLOW COMMANDS, APHASIC AT TIME. OPENS EYES SPONTANEOUSLY AND TO COMMANDS. BECOMES AGITATED AND RESTLESS AT TIMES, MOVES EXTREMITIES PURPOSEFULLY. CSF BLOOD-TINGED/JEONG COLOR, 141 OUT THIS SHIFT, OPEN AT ALL TIMES. PULSES PALPABLE THROUGHOUT, HYPERTENSIVE. HEAD DRESSING CHANGED TODAY, C/D/I. O2 SATS AROUND 95 THIS SHIFT, WITH 6L O2 VIA NC. LUNGS CLEAR AND DIMINISHED. HYPOACTIVE BOWEL SOUNDS. TUBE FEED OSMOLITE AT 50ML/HR. CAN PROGRESS TO SIPS, THEN CLEAR DIET TOLERATED. NO BM THIS SHIFT. AGUILAR INTACT WITH ADEQUATE URINARY OUTPUT. L) SUBCLAVIAN QUAD LUMEN WITH NS AT 100ML/HOUR. R) RADIAL ARTERIAL LINE, R) WRIST AND AC BOTH SL. CT SCAN OCCURRED THIS AFTERNOON.
[2017-04-03 03:24] LABS: ANION GAP 11.6 (10.0-19.0); BLOOD UREA NITROGEN 8 mg/dL (6-24); CHLORIDE 113 mMol/L (96-110); CO2 24 mMol/L (22-32); CREATININE 0.5 mg/dL (0.5-1.1); MAGNESIUM 2.6 mg/dL (1.8-2.6); PHOSPHORUS 2.5 mg/dL (2.5-4.9); POTASSIUM 3.6 mMol/L (3.7-5.1); SODIUM 145 mMol/L (135-145)
[2017-04-03 03:27] LABS: BASOPHIL % 0.4 %; HEMATOCRIT 30.6 % (33.0-46.0); HEMOGLOBIN 10.2 g/dL (10.0-15.0); IMMATURE GRANULOCYTE # 0.1 K/uL (0.0-0.3); IMMATURE GRANULOCYTE % 0.8 %; LYMPHOCYTE # 1.1 K/uL (0.8-4.0); LYMPHOCYTE % 15.1 %; MCH 32.8 pg (27.0-34.0); MCHC 33.3 gm/dL (32.0-36.5); MCV 98.4 fl (83.0-98.0); MONOCYTE # 0.7 K/uL (0.0-1.0); MONOCYTE % 9.3 %; MPV 10.5 fl (9.4-12.4); NEUTROPHIL # (ANC) 5.3 K/uL (1.8-7.8); NEUTROPHIL % 74.4 %; NRBC % 0 /100WBC (0-0.00); PLATELET COUNT 209 K/uL (150-450); RBC 3.11 M/uL (3.50-5.50); RDW-CV 13.6 % (11.9-14.6); WBC 7.1 K/uL (4.0-11.0)
[2017-04-03 12:56] LABS: ANION GAP 9.8 (10.0-19.0); POTASSIUM 3.8 mMol/L (3.7-5.1)
--- NOTE | 2017-04-03 19:38 | NUR ---
Pt disoriented to time and place and was able to state throughout shift. Repetitive at times, moves extremities purposefully. Follows some commands. Becomes restless and agitated at times, but drowsy throughout shift. Ventric open at all times, 108 out this shift. Lung sounds clear and diminished. Patient on room air. Pt pulled out dobhoff this AM, Doctor wrote to not replace and start clear liquid diet, tolerating clear liquid diet well. No BM this shift. Head dressing C/D/I. L) subclavian quad lumen, R) ART line, R) AC and wrist IVs both SL. CPP desired level 80-100, SBP 180-200, and ICP <30. Gave 20g of Mannitol IV x2, Hydralazine 10mg IV x2, Dilaudid .4mg IV x3. 2mg of Mag given for Mag level of 2.5.
[2017-04-03 21:03] LABS: ALBUMIN 2.6 gm/dL (3.5-5.0); ANION GAP 10.5 (10.0-19.0); BLOOD UREA NITROGEN 6 mg/dL (6-24); CHLORIDE 113 mMol/L (96-110); CO2 23 mMol/L (22-32); CREATININE 0.4 mg/dL (0.5-1.1); PHOSPHORUS 2.2 mg/dL (2.5-4.9); POTASSIUM 3.5 mMol/L (3.7-5.1); SODIUM 143 mMol/L (135-145)
[2017-04-04 05:22] LABS: BLOOD UREA NITROGEN 6 mg/dL (6-24); CALCIUM 8.3 mg/dL (8.5-10.5); CO2 22 mMol/L (22-32); CREATININE 0.4 mg/dL (0.5-1.1); MAGNESIUM 2.6 mg/dL (1.8-2.6); PHOSPHORUS 2.7 mg/dL (2.5-4.9); POTASSIUM 3.5 mMol/L (3.7-5.1)
[2017-04-04 05:24] LABS: ANION GAP 10.5 (10.0-19.0); CHLORIDE 117 mMol/L (96-110); SODIUM 146 mMol/L (135-145)
[2017-04-04 05:26] LABS: BASOPHIL % 0.2 %; EOSINOPHIL % 0.1 %; HEMATOCRIT 29.1 % (33.0-46.0); HEMOGLOBIN 9.5 g/dL (10.0-15.0); IMMATURE GRANULOCYTE # 0.1 K/uL (0.0-0.3); IMMATURE GRANULOCYTE % 0.6 %; LYMPHOCYTE # 1.3 K/uL (0.8-4.0); LYMPHOCYTE % 14.9 %; MCH 32.3 pg (27.0-34.0); MCHC 32.6 gm/dL (32.0-36.5); MONOCYTE # 0.6 K/uL (0.0-1.0); MONOCYTE % 7.4 %; MPV 10.6 fl (9.4-12.4); NEUTROPHIL # (ANC) 6.5 K/uL (1.8-7.8); NEUTROPHIL % 76.8 %; NRBC % 0 /100WBC (0-0.00); PLATELET COUNT 206 K/uL (150-450); RBC 2.94 M/uL (3.50-5.50); RDW-CV 13.2 % (11.9-14.6); WBC 8.4 K/uL (4.0-11.0)
--- NOTE | 2017-04-04 08:09 | NUR ---
Significant Event: PT RESTING ON AND OFF THROUGHOUT SHIFT. ICP RANGE FROM 17-40; MANNITOL GIVEN X2 DOSES. DR. MITCHELL UPDATED, SEE CHART AND [place] FOR ORDERS. REMAINS ORIENTED TO SELF, DISORIENTED TO TIME/PLACE. DIFFICULTY WITH DYSPHASIA, REPETITIVE AT TIMES. SANTAMARIA INDEPENDENTLY WITH GOOD STRENGTH, FOLLOWS COMMANDS, PERRL. HR 50S-80S, SBP MAINTAINED 180S-200S, PRN MEDICATIONS GIVEN TO KEEP WITHIN PARAMETERS. OCCASIONAL DROPS TO 160S AFTER NIMOTOP GIVEN BUT RECOVERS QUICKLY. TMAX 101.2, APAP GIVEN X2 THIS SHIFT WITH POSITIVE RESULT. REMAINS ON RA, OCCASIONAL DESATURATIONS AFTER NIMOTOP GIVEN BUT RECOVERS QUICKLY AND REMAINS >/=90%. SMALL BM FOR THIS RN. UOP APPROPRIATE. Follow up: CONTINUE WITH Q3H NEURO ASSESSMENTS, CONTINUE TO MAINTIAN SBP WITHIN PARAMETERS, CONTINUE TO MAINTAIN ICP WITHIN PARAMETERS BENI ROBIN RN
--- NOTE | 2017-04-04 15:17 | NUR ---
Occupational Therapy Note: OT attempted to complete pt OT eval x 2 in the p.m. however PT was with pt during initial attempt and pt had pulled out all lines during the 2nd attempt. OT will check back tomorrow as appropriate. Thank you, Alicia Alarcon, OTR/L
--- NOTE | 2017-04-04 19:33 | NUR ---
SIGNIFICANT EVENT: PATIENT ALERT, ORIENTED TO SELF. DISORIENTED TO TIME AND PLACE. PATIENT OPENS EYES SPONT AND TO VOICE. PUPILS EQUAL AND REACTIVE. PATIENT'S SPEECH IS CLEAR. MAKES FORGETFUL/ CONFUSED COMMENTS. HAS BEEN EXPERIENCING EXPRESSIVE AND RECEPTIVE APHASIA. PATIENT RESTLESS/ AGITATED AT TIMES. DILAUDID GIVEN. WRIST RESTRAINTS ON R/T PATIENT PULLING ON EQUIPMENT. R) ICP/VENTRIC INTACT. ICP THROUGHOUT THE SHIFT 12-29. VENTRIC OPEN AT ALL TIMES. 94 ML OF BLOOD TINGED CSF DRAINED THIS SHIFT. EVD SYSTEM ( EXTERNAL TUBING/DRAINAGE DEVICE) CHANGED OUT THIS SHIFT. PATIENT HAS BEEN IN SINUS RHYTHM, SIENA AT TIMES. HR 49-80S. PULSES PALPABLE THROUGHOUT. BP STABLE, SBP 170-200, MAP >65, CPP HIGH 70S-100. AFEBRILE. PATIENT IS CURRENTLY ON 3L NASAL CANNULA, SATS MID 90S. SPONT NON PRODUCTIVE COUGH. OTTS-TYYLS-VNIL BREATHING ENCOURAGED THROUGHOUT THE SHIFT. BOWEL SOUNDS PRESENT, TOLERATING LIQUID DIET WELL. 4 BM THIS SHIFT. AGUILAR INTACT, ADEQUATE URINE OUTPUT. NO NEW SKIN ISSUES REPOISITION AT LEAST EVERY 2 HOURS. R) PICC PLACED TODAY, L) SUBCLAVIAN D/C'D. 1:[address] ROD[address] AND [address]. LI AWARE AND NOTIFIED OF ALL FINDINGS. FOLLOW UP: CONT TO MONITOR.
[2017-04-04 21:27] LABS: ALBUMIN 2.8 gm/dL (3.5-5.0); ANION GAP 10.8 (10.0-19.0); BLOOD UREA NITROGEN 6 mg/dL (6-24); CALCIUM 8.3 mg/dL (8.5-10.5); CHLORIDE 116 mMol/L (96-110); CO2 23 mMol/L (22-32); CREATININE 0.4 mg/dL (0.5-1.1); PHOSPHORUS 2.5 mg/dL (2.5-4.9); POTASSIUM 3.8 mMol/L (3.7-5.1); SODIUM 146 mMol/L (135-145)
[2017-04-05 05:52] LABS: ANION GAP 14.2 (10.0-19.0); BLOOD UREA NITROGEN 4 mg/dL (6-24); CALCIUM 7.8 mg/dL (8.5-10.5); CHLORIDE 115 mMol/L (96-110); CO2 19 mMol/L (22-32); POTASSIUM 3.2 mMol/L (3.7-5.1); SODIUM 145 mMol/L (135-145)
[2017-04-05 05:54] LABS: CREATININE 0.7 mg/dL (0.5-1.1); MAGNESIUM 2.7 mg/dL (1.8-2.6); PHOSPHORUS 1.7 mg/dL (2.5-4.9)
[2017-04-05 06:13] LABS: BASOPHIL % 0.2 %; EOSINOPHIL # 0.1 K/uL (0.0-0.5); EOSINOPHIL % 0.8 %; HEMATOCRIT 30.2 % (33.0-46.0); IMMATURE GRANULOCYTE # 0.1 K/uL (0.0-0.3); LYMPHOCYTE # 1.3 K/uL (0.8-4.0); LYMPHOCYTE % 14.9 %; MCH 32.8 pg (27.0-34.0); MCHC 33.1 gm/dL (32.0-36.5); MONOCYTE # 0.7 K/uL (0.0-1.0); MPV 10.9 fl (9.4-12.4); NEUTROPHIL # (ANC) 6.7 K/uL (1.8-7.8); NEUTROPHIL % 75.1 %; NRBC % 0 /100WBC (0-0.00); PLATELET COUNT 222 K/uL (150-450); RBC 3.05 M/uL (3.50-5.50); RDW-CV 13.2 % (11.9-14.6); WBC 8.9 K/uL (4.0-11.0)
--- NOTE | 2017-04-05 07:54 | NUR ---
Significant Event: PT IMPROVING WITH DYSPHASIA ALTHOUGH CONTINUES TO HAVE DIFFICULTIES WITH COMMUNICATION. CONTINUES TO MOVE ALL EXTREMITIES WELL, FINE MOTOR IMPROVING. ABLE TO HOLD MEDICINE CUPS TO GIVE HERSELF MEDS. ORIENTED TO PERSON, D/O TO PLACE/TIME. CONTINUES TO HAVE EPISODES OF REPETITIVE SPEECH WELL OCCASIONAL EPISODES OF RECEPTIVE DYSPHASIA. ICP/VENTRIC REMAINS IN PLACE; NO MANNITOL GIVEN FOR THIS SHIFT. CSF CONTINUES TO BE BLOOD TINGED. HYDRALAZINE X1 AND LEBETALOL X1 GIVEN BY THIS RN FOR SBP MANAGEMENT. O2 WEANED TO RA, NO DIFFICULTIES WITH SPO2 SINCE. BM X3 THIS SHIFT, INCONTINENT DUE TO INABILITY TO EXPRESS NEEDS AT TIMES. UOP APPROPRIATE. Follow up: CONTINUE WITH VENTRIC DRAINAGE, ENCOURAGE UP IN CHAIR, ENCOURAGE PO INTAKE WITH REGULAR DIET, Q8H LABS, 1:1 SITTER. BENI ROBIN RN
--- NOTE | 2017-04-05 09:55 | NUR ---
A - NUTRITION F/U. A/O X 1. K+ 3.2, GLU 188, BUN/WELDING MACHINE OPERATOR ULTRASONIC 4/0.7, ALB 2.8, PO4 1.7. DIET: REGULAR W/ 25-50%. RN REPORTS NO DIFFICULTY SWALLOWING. OBTAINED SUPPLEMENT PREFERENCES FROM DAUGHTER. D - AT RISK W/ INADEQUATE ORAL INTAKE R/T DECREASED APPETITE AND ALTERED MENTAL STATUS. I - GOAL: 50-75% INTAKE. M/E - WILL SEND CHOCOLATE ENSURE AT BF, APPLE ENSURE CLEAR AT LUNCH AND CHOCOLATE MAGIC CUP AT DINNER. WILL F/U IN 4-5 DAYS.
--- NOTE | 2017-04-05 15:06 | NUR ---
I spoke with Annetta with [facility] and they filed a disabiliyt application and medicaid application today.
--- NOTE | 2017-04-05 20:27 | NUR ---
PATIENT ALERT, ORIENTED TO SELF THROUGHOUT SHIFT. DISORIENTED TO TIME AND PLACE. PATIENT OPENS EYES SPONTANEOUSLY AND TO SOUND. MOVES ALL FOUR EXTREMITIES SPONTANEOUSLY. MAKES FORGETFUL AND REPETITIVE STATEMENTS. FOLLOWS COMMANDS AT TIMES. PATIENT BECOMES AGITATED AND RESTLESS THROUGHOUT SHIFT. ATIVAN 2MG GIVEN THIS AFTERNOON. R) ARTERIAL LINE D/C'd THIS AFTERNOON PER DOCTOR'S ORDERS. ICP/VENTRIC INTACT, VENTRIC OPEN AT ALL TIMES, 124 OUT THIS SHIFT. PATIENT ON ROOM AIR, SATS MID 90s. 2 BMs THIS SHIFT, GOOD URINARY OUTPUT. NO NEW SKIN ISSUES. AMBULATED IN HALLWAY TWO TIMES TODAY. DILAUDID 0.4MG GIVEN TWO TIMES THIS SHIFT.
[2017-04-05 21:33] LABS: ALBUMIN 2.7 gm/dL (3.5-5.0); BLOOD UREA NITROGEN 6 mg/dL (6-24); CO2 22 mMol/L (22-32); CREATININE 0.4 mg/dL (0.5-1.1)
[2017-04-05 21:34] LABS: CHLORIDE 117 mMol/L (96-110); SODIUM 146 mMol/L (135-145)
[2017-04-06 05:14] LABS: BLOOD UREA NITROGEN 5 mg/dL (6-24); CO2 22 mMol/L (22-32); CREATININE 0.4 mg/dL (0.5-1.1); PHOSPHORUS 2.9 mg/dL (2.5-4.9); POTASSIUM 3.4 mMol/L (3.7-5.1)
[2017-04-06 05:15] LABS: ANION GAP 12.4 (10.0-19.0); CHLORIDE 116 mMol/L (96-110); SODIUM 147 mMol/L (135-145)
[2017-04-06 05:17] LABS: BASOPHIL % 0.5 %; EOSINOPHIL # 0.1 K/uL (0.0-0.5); EOSINOPHIL % 1.1 %; HEMATOCRIT 27.7 % (33.0-46.0); HEMOGLOBIN 9.1 g/dL (10.0-15.0); IMMATURE GRANULOCYTE # 0.1 K/uL (0.0-0.3); IMMATURE GRANULOCYTE % 1.2 %; LYMPHOCYTE # 1.7 K/uL (0.8-4.0); LYMPHOCYTE % 24.8 %; MCH 32.9 pg (27.0-34.0); MCHC 32.9 gm/dL (32.0-36.5); MONOCYTE # 0.6 K/uL (0.0-1.0); MONOCYTE % 9.3 %; MPV 10.4 fl (9.4-12.4); NEUTROPHIL # (ANC) 4.2 K/uL (1.8-7.8); NEUTROPHIL % 63.1 %; NRBC % 0 /100WBC (0-0.00); PLATELET COUNT 215 K/uL (150-450); RBC 2.77 M/uL (3.50-5.50); RDW-CV 13.5 % (11.9-14.6); WBC 6.7 K/uL (4.0-11.0)
--- NOTE | 2017-04-06 07:40 | NUR ---
Significant Event: PT'S NEURO CONTINUES TO HAVE SLIGHT IMPROVEMENTS THIS SHIFT. SANTAMARIA SPONTANEOUSLY, INCONSISTENT WITH FOLLOWING COMMANDS. RESTLESS AT TIMES REQUIRING ATIVAN IVP. SPEECH IMPROVING BUT STILL HAS SIGNIFICANT DYSPHASIA. VENTRIC FOUND TO BE LEAKING CSF WHEN CLOSED FOR ICP MEASUREMENTS, DR. BLACK INFORMED AND ONCOMING SHIFT INFORMED. TOTAL OF 110 MLS CSF DRAINED. SR ON MONITOR, HR 60S; HYDRALAZINE X1 DOSE GIVEN FOR HYPERTENSION. REMAINS ON RA. NO BM THIS SHIFT. UOP APPROPRIATE. Follow up: DR. BLACK TO EVAL VENTRIC, CONTINUE WITH DRAINING CSF, CONTINUE WITH Q8H LABS. BENI ROBIN RN
[2017-04-06 12:53] LABS: ANION GAP 12.2 (10.0-19.0); MAGNESIUM 2.3 mg/dL (1.8-2.6); POTASSIUM 3.2 mMol/L (3.7-5.1)
--- NOTE | 2017-04-06 18:08 | NUR ---
Significant Event:NEURO; Expressive dysphasia. Unsteady gait. Restless and agitated. Impulsive at times. Ativan 2mg PRN given x 2. CARDIO: Temp 100.9 SBP 150s-180s. 1:1 Sitter for impulsiveness and pulling at IV, cords.
[2017-04-06 23:01] LABS: ALBUMIN 2.9 gm/dL (3.5-5.0); ANION GAP 11.8 (10.0-19.0); BLOOD UREA NITROGEN 7 mg/dL (6-24); CALCIUM 8.3 mg/dL (8.5-10.5); CHLORIDE 111 mMol/L (96-110); CO2 23 mMol/L (22-32); CREATININE 0.5 mg/dL (0.5-1.1); MAGNESIUM 2.4 mg/dL (1.8-2.6); PHOSPHORUS 2.2 mg/dL (2.5-4.9); POTASSIUM 3.8 mMol/L (3.7-5.1); SODIUM 142 mMol/L (135-145)
--- NOTE | 2017-04-07 04:53 | NUR ---
Significant Event: Follows commands when calm. Pupils 3mm and brisk. Oriented to self. D/O to time/place. Severe expressive aphasia. Periods of frustration and emotion. systolic Bp remains between 180-200, hydralazine given once. slight temp of 100.4 treated with tylenol. Lung sounds clear on room air. armijo drained adequate urine. bowel sounds are active, no BM this shift. Dilaudid was given twice for episodes of pain and agitation. Patient ambulated in hallway twice and did fair. Follow up: continue with cares
[2017-04-07 05:06] LABS: ANION GAP 11.3 (10.0-19.0); BLOOD UREA NITROGEN 5 mg/dL (6-24); CALCIUM 8.4 mg/dL (8.5-10.5); CHLORIDE 111 mMol/L (96-110); CO2 23 mMol/L (22-32); CREATININE 0.5 mg/dL (0.5-1.1); MAGNESIUM 2.3 mg/dL (1.8-2.6); PHOSPHORUS 3.3 mg/dL (2.5-4.9); POTASSIUM 3.3 mMol/L (3.7-5.1); SODIUM 142 mMol/L (135-145)
[2017-04-07 05:16] LABS: BASOPHIL # 0.1 K/uL (0.0-0.2); BASOPHIL % 0.6 %; EOSINOPHIL % 0.5 %; HEMATOCRIT 28.4 % (33.0-46.0); HEMOGLOBIN 9.5 g/dL (10.0-15.0); IMMATURE GRANULOCYTE # 0.1 K/uL (0.0-0.3); IMMATURE GRANULOCYTE % 0.7 %; LYMPHOCYTE # 1.8 K/uL (0.8-4.0); LYMPHOCYTE % 21.9 %; MCHC 33.5 gm/dL (32.0-36.5); MCV 98.6 fl (83.0-98.0); MONOCYTE # 0.8 K/uL (0.0-1.0); MONOCYTE % 9.9 %; MPV 10.3 fl (9.4-12.4); NEUTROPHIL # (ANC) 5.6 K/uL (1.8-7.8); NEUTROPHIL % 66.4 %; NRBC % 0 /100WBC (0-0.00); PLATELET COUNT 242 K/uL (150-450); RBC 2.88 M/uL (3.50-5.50); RDW-CV 13.5 % (11.9-14.6); WBC 8.4 K/uL (4.0-11.0)
--- NOTE | 2017-04-07 14:56 | NUR ---
Inroduced self and role of care management to pt's son who she lives with. I did touch briefly on rehab and she will need this prior to home and where he would like to do this with. I did tell him that Medicaid of [place] will play a part in this as well. He was hoping to be able to stay up around here. I asked about [place] and [place] and they are like 4 hrs away. I did mention [facility] because they do take some [place] Medicaid and unsure about our rehab but can look into it as well. HE states the family will need to discuss this further as well. WIll continue to follow.
[2017-04-07 15:51] LABS: ANION GAP 10.2 (10.0-19.0); POTASSIUM 4.2 mMol/L (3.7-5.1)
[2017-04-07 15:52] LABS: MAGNESIUM 3.1 mg/dL (1.8-2.6)
--- NOTE | 2017-04-07 18:25 | NUR ---
Significant Event: Patient alert to self. Expressive and receptive aphasia. Restless at times. Needs reoriented frequently. Follows ome simple commands. PERRLA. 3BB. VSS. Afebrile most of shift. 2+ pulses throughout. Room air with sat in the high 90s. LS clear and diminished. Scattered bruising. ICP/ventric site and Left craniotomy site open to air and stapled. Patient will no leave dressing on. PICC DONTA infusing with no complications. 1 assist with gaitbelt. No pain meds given this shift. Family at bedside on/off throughout shift. Follow up: 1:1 sitter; monitor neuro status
[2017-04-07 22:09] LABS: ALBUMIN 2.7 gm/dL (3.5-5.0); ANION GAP 11.8 (10.0-19.0); BLOOD UREA NITROGEN 7 mg/dL (6-24); CALCIUM 7.8 mg/dL (8.5-10.5); CHLORIDE 113 mMol/L (96-110); CO2 22 mMol/L (22-32); CREATININE 0.6 mg/dL (0.5-1.1); MAGNESIUM 2.2 mg/dL (1.8-2.6); PHOSPHORUS 2.2 mg/dL (2.5-4.9); POTASSIUM 3.8 mMol/L (3.7-5.1); SODIUM 143 mMol/L (135-145)
[2017-04-08 03:57] LABS: ANION GAP 11.6 (10.0-19.0); BLOOD UREA NITROGEN 5 mg/dL (6-24); CHLORIDE 112 mMol/L (96-110); CO2 23 mMol/L (22-32); CREATININE 0.5 mg/dL (0.5-1.1); PHOSPHORUS 3.2 mg/dL (2.5-4.9); POTASSIUM 3.6 mMol/L (3.7-5.1); SODIUM 143 mMol/L (135-145)
[2017-04-08 03:58] LABS: MAGNESIUM 2.7 mg/dL (1.8-2.6)
--- NOTE | 2017-04-08 04:30 | NUR ---
Significant Event: Patient is alert to self. Disoriented to time and place. Dysphasic. Follows commands at times. PERRLA. Moves all four extremities spontaneously. VSS on RA. Up with 2 assist and gaitbelt. Horse shoe incision to left side of head stapled. Incision to middle lateral right side of head, stapled. Was leaking clear drainage, MD called. Applied 2 more dorinda to the incision, no drainage noted since. Right double lumen PICC with NS running at 75 ml/hr and 3% Hypertonic Solution running at 10 ml/hr. Q4 hour accuchecks. Denies any pain. Rudd intact, 1740 mls out this shift. In 1:1 sitter for pulling and picking at things. Daughter at the bedside. Patient has slept well this shift. Follow up:
--- NOTE | 2017-04-08 08:16 | NUR ---
A - NUTRITION F/U. A/O X 1, 1:1. ICP/VENTRIC. K+ 3.6, GLU 106, BUN/LUBRICATING SPECIALIST 5/0.5. DIET: REGULAR W/ SUPPLEMENTS AT MEALS. INTAKE IMPROVED FROM REF-50% TO 75-100%. D - PT MOVED TO NO RISK W/ IMPROVED ORAL INTAKE. I - GOAL: 75% OR BETTER INTAKE. M/E - WILL F/U IN 5-7 DAYS.
--- NOTE | 2017-04-08 15:29 | NUR ---
Significant Event: PT alert, oriented to self, disoriented to time/place, aphasic. VSS, on room air. Tmax of 100.1 this shift. R)upper arm PICC patent. MG and KCL IV given this shift. Tolerating diet. Rudd patent. [place] intact to head. Ambulates with gait belt and 1-[address] done this shift. Family at bedside. Follow up:
--- NOTE | 2017-04-08 17:01 | NUR ---
I did leave a vm with Azul wondering about acute rehab. PT is still a 1:1 and impulsive. WIll continue to follow.
--- NOTE | 2017-04-09 03:39 | NUR ---
MELISSA. Continues to be oriented to self only. No complaints of pain, numbness, or tingling. SBP 120-170s. HR 60-70s. Tmax 100.9 which decreased with tylenol. Continues on room air with 02 sats upper 90s. No BM this shift. Follow up: possible transfer.
[2017-04-09 03:44] LABS: ANION GAP 10.8 (10.0-19.0); CALCIUM 8.4 mg/dL (8.5-10.5); CHLORIDE 111 mMol/L (96-110); CO2 25 mMol/L (22-32); CREATININE 0.4 mg/dL (0.5-1.1); MAGNESIUM 2.3 mg/dL (1.8-2.6); PHOSPHORUS 4.2 mg/dL (2.5-4.9); POTASSIUM 3.8 mMol/L (3.7-5.1); SODIUM 143 mMol/L (135-145)
[2017-04-09 03:45] LABS: BLOOD UREA NITROGEN 9 mg/dL (6-24)
--- NOTE | 2017-04-09 16:44 | NUR ---
SIGNIFICANT EVENT: PATIENT ALERT, OPENS EYES SPONT AND TO VOICE. PUPILS EQUAL AND REACTIVE. PATIENT ORIENTED TO PERSON, DISORIENTED TO TIME AND PLACE REGARDLESS OF REMINDERS. SPEECH IS CLEAR, HOWEVER PATIENT MAKES FORGETFUL/CONFUSED COMMENTS. PATIENT APPEARS TO BE EXPERIENCING SOME EXPRESSIVE AND RECEPTIVE APHASIA. PATIENT MOVES ALL 4 EXTREMITIES SPONT AND TO COMMANDS. EQUAL STRENGTH THROUGHOUT. PATIENT DENIES ANY NUMBNESS, TINGLING, OR PAIN. PATIENT DENIES ANY HEADACHES. RESTLESS/IMPULSIVE AT TIMES. 1:1 SITTER. PATIENT HAS BEEN IN SINUS RHYTHM, HR 60-80S. PULSES PALPABLE THROUGHOUT. BP STABLE, HYPERTENSIVE AT TIMES HOWEVER WITHIN ORDERED PARAMETERS. SBP 120-160S. MAP>65. MAX TEMP OF 99.8. PATIENT ON ROOM AIR, SATS MID TO UPPER 90S. BOWEL SOUNDS ACTIVE, 1 BM TODAY. TOLERATING DIET WELL. AGUILAR CONTINUED, NO COMPLICATIONS. MICHAEL CARES COMPLETED. REPOSITIONED EVERY 2 HOURS. AMBULATES WITH 1 PERSON ASSIST AND A GAITBELT. NO NEW SKIN ISSUES NOTED. FOLLOW UP: CONTINUE TO MONITOR
--- NOTE | 2017-04-10 05:36 | NUR ---
Pt awake the entire not. Continues to have impulsive moments requiring redirection. Na dnd U/O within MD parameters. Labs sent and pending
[2017-04-10 05:37] LABS: ANION GAP 10.6 (10.0-19.0); BLOOD UREA NITROGEN 12 mg/dL (6-24); CALCIUM 8.8 mg/dL (8.5-10.5); CHLORIDE 110 mMol/L (96-110); CO2 25 mMol/L (22-32); CREATININE 0.5 mg/dL (0.5-1.1); MAGNESIUM 2.1 mg/dL (1.8-2.6); PHOSPHORUS 4.3 mg/dL (2.5-4.9); POTASSIUM 3.6 mMol/L (3.7-5.1); SODIUM 142 mMol/L (135-145)
--- NOTE | 2017-04-10 17:57 | NUR ---
PATIENT IS AAOX1. SHE KNOWS HER NAME, BIRTHDAY, THAT SHE HAS 5 KIDS, WANTS TO GO TO THE CAR WITH HER BOYFRIEND AND HAVE A CIGERETTE. SHE GETS HER BOYFRIEND'S NAME CORRECT 50% OF THE TIME. SHE HAS TROUBLE COMPLETING THOUGHTS. SHE DOES ATTEMPT TO FINISH HER THOUGHTS AND GIVE ANSWERS TO QUESTIONS. SHE HAS DONE A GOOD JOB OF AVOIDING TOUCHING HER SUTURES. PM RN DAMON, MADE A HEADDRESS OUT OF [place] AND [place] WHICH HAS WORKED WELL. SHE IS ON ROOM AIR AND A REGUALR DIET (100% EATEN). SHE HAS A RIGHT PICC LINE FOR HER SODIUM DRAW. SHE HAS A AGUILAR HUNG TO GRAVITY BUT GETS UP TO THE TOLIET FOR BOWEL MOVEMENTS. SHE HAS REFUSED A BATH TODAY. SHE HAD A HEADACHE THIS MORNING AND ONE THIS AFTERNOON. MD GONZALEZ WAS CALLED TO INFORM HIM ABOUT THE MOST RECENT ONE. HE SAID GIVE HER TYLENOL.
[2017-04-10 21:25] LABS: BASOPHIL % 0.2 %; BILIRUBIN URINE NEGATIVE (NEGATIVE); BLOOD URINE 10 /UL (NEGATIVE); COLOR URINE YELLOW (YELLOW); EOSINOPHIL % 0.3 %; GLUCOSE URINE NEGATIVE (NEGATIVE); HEMATOCRIT 28.6 % (33.0-46.0); HEMOGLOBIN 9.6 g/dL (10.0-15.0); IMMATURE GRANULOCYTE # 0.1 K/uL (0.0-0.3); IMMATURE GRANULOCYTE % 0.6 %; KETONE URINE NEGATIVE (NEGATIVE); LEUKOCYTES URINE NEGATIVE /UL (NEGATIVE); LYMPHOCYTE # 0.8 K/uL (0.8-4.0); LYMPHOCYTE % 5.9 %; MCH 33.3 pg (27.0-34.0); MCHC 33.6 gm/dL (32.0-36.5); MCV 99.3 fl (83.0-98.0); MONOCYTE # 0.6 K/uL (0.0-1.0); MONOCYTE % 4.7 %; MPV 10.3 fl (9.4-12.4); NEUTROPHIL # (ANC) 11.3 K/uL (1.8-7.8); NEUTROPHIL % 88.3 %; NITRITE URINE NEGATIVE (NEGATIVE); NRBC % 0 /100WBC (0-0.00); PROTEIN URINE 15 mg/dL (NEGATIVE); RBC 2.88 M/uL (3.50-5.50); RDW-CV 14.3 % (11.9-14.6); TURBIDITY URINE 1+ (CLEAR); UROBILINOGEN URINE NORMAL (NORMAL); WBC 12.9 K/uL (4.0-11.0)
[2017-04-10 21:33] LABS: PLATELET COUNT 396 K/uL (150-450)
[2017-04-10 21:57] LABS: AMORPHOUS URINE 3+ (NEGATIVE); BACTERIA URINE RARE (NEGATIVE); EPITHELIAL URINE 0-2 #/HPF (NEGATIVE); RBC URINE 0-2 #/HPF (NEGATIVE); WBC URINE 0-2 #/HPF (NEGATIVE)
[2017-04-11 03:04] LABS: INR - (THERAPEUTIC) 0.98 (0.92-1.07); PROTIME 10.3 SECONDS (9.8-11.4)
[2017-04-11 03:06] LABS: BASOPHIL % 0.2 %; EOSINOPHIL % 0.1 %; HEMATOCRIT 28.5 % (33.0-46.0); HEMOGLOBIN 9.6 g/dL (10.0-15.0); IMMATURE GRANULOCYTE # 0.1 K/uL (0.0-0.3); IMMATURE GRANULOCYTE % 0.6 %; LYMPHOCYTE # 1.4 K/uL (0.8-4.0); MCH 33.6 pg (27.0-34.0); MCHC 33.7 gm/dL (32.0-36.5); MCV 99.7 fl (83.0-98.0); MONOCYTE # 0.8 K/uL (0.0-1.0); MONOCYTE % 5.7 %; MPV 10.1 fl (9.4-12.4); NEUTROPHIL # (ANC) 11.9 K/uL (1.8-7.8); NEUTROPHIL % 83.4 %; NRBC % 0 /100WBC (0-0.00); PLATELET COUNT 427 K/uL (150-450); RBC 2.86 M/uL (3.50-5.50); RDW-CV 14.3 % (11.9-14.6); WBC 14.3 K/uL (4.0-11.0)
[2017-04-11 03:08] LABS: ALK PHOS 103 IU/L (33-138); ALT 33 IU/L (12-78); ANION GAP 12.7 (10.0-19.0); AST 30 IU/L (10-40); BLOOD UREA NITROGEN 12 mg/dL (6-24); CALCIUM 8.9 mg/dL (8.5-10.5); CHLORIDE 105 mMol/L (96-110); CO2 23 mMol/L (22-32); CREATININE 0.7 mg/dL (0.5-1.1); POTASSIUM 3.7 mMol/L (3.7-5.1); SODIUM 137 mMol/L (135-145); TOTAL PROTEIN 6.9 g/dL (6.0-8.4)
[2017-04-11 03:09] LABS: MAGNESIUM 1.9 mg/dL (1.8-2.6); PHOSPHORUS 4.1 mg/dL (2.5-4.9); TOTAL BILIRUBIN 0.3 mg/dL (0.0-1.5)
--- NOTE | 2017-04-11 07:57 | NUR ---
Significant Event: PT REPORTS HEADACHE/DISCOMFORT. MOVES ALL EXTREMITIES SPONTANEOUSLY AND TO COMMAND. TEMPMAX 103 REPORTED BY SHIVANI, PRIMARY NURSE, TO DR BLACK AND DR RODAS. BLOOD CULTURES AND URINE CULTURE COLLECTED. AGUILAR DC'D. TYLENOL GIVEN. HEAD CT DONE, ANTIBIOTICS STARTED. ON ROOM AIR. VOIDING PER BATHROOM POST AGUILAR REMOVAL. PICC TO RIGHT UPPER ARM, ACTIVASED. FAMILY AT BEDSIDE. PRN MORPHINE GIVEN FOR HEADACHE. Follow up: POSSIBLE LP TODAY. INFECTIOUS DISEASE CONSULT. WOC CONSULT
[2017-04-11 12:42] LABS: ANION GAP 10.4 (10.0-19.0); BLOOD UREA NITROGEN 10 mg/dL (6-24); CALCIUM 8.6 mg/dL (8.5-10.5); CHLORIDE 108 mMol/L (96-110); CO2 25 mMol/L (22-32); CPK 36 IU/L (21-215); CREATININE 0.5 mg/dL (0.5-1.1); POTASSIUM 3.4 mMol/L (3.7-5.1); SODIUM 140 mMol/L (135-145)
[2017-04-11 16:11] LABS: BLOOD UREA NITROGEN 7 mg/dL (6-24); CO2 19 mMol/L (22-32)
[2017-04-11 16:12] LABS: ANION GAP 18.5 (10.0-19.0); CHLORIDE 120 mMol/L (96-110); CREATININE 0.2 mg/dL (0.5-1.1); POTASSIUM 2.5 mMol/L (3.7-5.1); SODIUM 155 mMol/L (135-145)
[2017-04-11 17:32] LABS: BLOOD UREA NITROGEN 10 mg/dL (6-24); CALCIUM 8.4 mg/dL (8.5-10.5); CHLORIDE 112 mMol/L (96-110); CO2 25 mMol/L (22-32); CPK 40 IU/L (21-215); POTASSIUM 3.7 mMol/L (3.7-5.1)
[2017-04-11 17:33] LABS: ANION GAP 9.7 (10.0-19.0); CREATININE 0.4 mg/dL (0.5-1.1); SODIUM 143 mMol/L (135-145)
--- NOTE | 2017-04-11 19:59 | NUR ---
SIGNIFICANT EVENT: PATIENT MORE ALERT TOWARDS THE END OF THE SHIFT. DROWSY AT THE BEGINING OF THE SHIFT, ALL PHYSICIANS AWARE OF PATIENT'S NEUROLOGICAL STATUS. PATIENT ORIENTED TO SELF, DISORIENTED TO TIME AND PLACE. SPEECH IS CLEAR. CONFUSED/ FORGETFUL COMMENTS. EXPRESSIVE APHASIA PRESENT. NO FACIAL ASYMMETRY. PATIENT DENIES NUMBNESS OR TINGLING. PATIENT REPORTS SOME GENREALIZED PAIN/ DISCOMFORT, RELIEF NOTED FROM TYLENOL. PATIENT HAS BEEN IN SINUS RHYTHM, HR 60-80S. ST DEPRESSION NOTED. 12 LEAD EKG OBTAINED THIS SHIFT. CARDIAC ENZYMES X3 MONITORED. 20 MEQ OF KCL PO GIVEN PER MD ORDER. DENIES CHEST PAIN. PULSES PALPABLE THROUGHOUT. FEBRILE, MAX TEMP OF 102.9, MD AWARE. ANTIBIOTICS STARTED THIS SHIFT. BP STABLE, SBP UP TO 170S AT TIMES, WITH SCHEDULED MEDS WITHIN 30 MINUTS BP DECREASES TO SBP 110-140S. MAP>65. PATIENT HAS BEEN ON ROOM AIR, SATS UPPER 90S. BOWEL SOUNDS PRESENT, REG DIET RESUMED THIS EVENING, TOLERATING WELL. UP TO BATHROOM FOR VOIDS, ADEQUATE URINE OUTPUT. 3% SALINE IV GIVEN, 300 ML AT 30ML/HR PER MD ORDER. BATH COMPLETED THIS SHIFT. NO NEW SKIN ISSUES. AMBULATED IN HALLWAYS WITH STAND BY ASSISTANCE X3. REPOSITIONED MINIMALLY EVERY 2 HOURS. FOLLOW UP: CONT TO MONITOR, REPORT AND CHANGES IN CARDIAC, OR NEURO STATUS. OR ANY ABNORMALITIES
[2017-04-11 22:09] LABS: ANION GAP 11.5 (10.0-19.0); BLOOD UREA NITROGEN 12 mg/dL (6-24); CALCIUM 8.1 mg/dL (8.5-10.5); CHLORIDE 109 mMol/L (96-110); CO2 23 mMol/L (22-32); CREATININE 0.5 mg/dL (0.5-1.1); POTASSIUM 3.5 mMol/L (3.7-5.1); SODIUM 140 mMol/L (135-145)
[2017-04-12 02:32] LABS: MAGNESIUM 1.9 mg/dL (1.8-2.6)
[2017-04-12 02:35] LABS: ALBUMIN 2.5 gm/dL (3.5-5.0); ANION GAP 10.5 (10.0-19.0); BLOOD UREA NITROGEN 10 mg/dL (6-24); CHLORIDE 107 mMol/L (96-110); CO2 25 mMol/L (22-32); CREATININE 0.4 mg/dL (0.5-1.1); PHOSPHORUS 2.8 mg/dL (2.5-4.9); POTASSIUM 3.5 mMol/L (3.7-5.1); SODIUM 139 mMol/L (135-145)
[2017-04-12 05:28] LABS: BASOPHIL % 0.4 %; EOSINOPHIL % 0.4 %; HEMATOCRIT 23.3 % (33.0-46.0); IMMATURE GRANULOCYTE % 0.4 %; LYMPHOCYTE # 1.7 K/uL (0.8-4.0); LYMPHOCYTE % 24.5 %; MCV 100.9 fl (83.0-98.0); MONOCYTE # 0.5 K/uL (0.0-1.0); MONOCYTE % 7.2 %; MPV 9.5 fl (9.4-12.4); NEUTROPHIL # (ANC) 4.6 K/uL (1.8-7.8); NEUTROPHIL % 67.1 %; NRBC % 0 /100WBC (0-0.00); RBC 2.31 M/uL (3.50-5.50); RDW-CV 14.3 % (11.9-14.6); WBC 6.8 K/uL (4.0-11.0)
[2017-04-12 05:32] LABS: HEMOGLOBIN 7.6 g/dL (10.0-15.0); MCH 32.9 pg (27.0-34.0); MCHC 32.6 gm/dL (32.0-36.5); PLATELET COUNT 340 K/uL (150-450)
--- NOTE | 2017-04-12 06:09 | NUR ---
Significant Event: The patient is Alert to self only. Forgetful. Aphasic. Moves all extremities spontaneously and to command. Up with 1 assist, gaitbelt. VSS. On room air. PICC to the right arm, saline locked. No complaints of pain. Pupils are equal and reactive. Incision to head Stapled and open to air. SBP goal is to keep it less than 150. 1:1 sitter for being impulsive. Accu checks Q4H. Follow up:
--- NOTE | 2017-04-12 15:05 | NUR ---
I spoke with Azul to see when pt can get over and she will look at her. She will most likely need to get off the 1:1 and she is self pay pending Medicaid of [place].
--- NOTE | 2017-04-12 15:13 | NUR ---
PT REMAINS AT NO RISK W/ 75-100%. WILL CONT SUPPLEMENTS TID TO MAINTAIN NUTRITION STATUS AND F/U IN 7-10 DAYS.
--- NOTE | 2017-04-12 16:13 | NUR ---
I met with son Augusto today and discussed a little regarding dc plans. He states he is home now for a while and can care for her but wondering what would be the best if it were home or rehab of some kind. He states he can care for her but the cognitive stuff he worries about. I did tell him therapy can be done as an outpt but I think acute rehab would be beneficial. I did tell him it depended on insurance and most likely will need off the 1:1 and she is still on iv atb and also the 3%saline. He stated the closest would be here and would prefer to stay here but the [facility]. I did tell him [facility] but needs to have the medicaid active and most likely it would have to be for the other places as well. He thinks a little rehab prior to home would be best and his sisters agree with him as well. I explained hopefully in the next few days we have a better idea and I did tell him I have our GIRP looking at her as well.
--- NOTE | 2017-04-12 18:35 | NUR ---
Significant Event: PT ALERT TO SELF AND BIRTHDAY AT TIMES. HAS PROBLEMS WITH WORD FINDING/APHASIA. PERRLA. FOLLOWS SIMPLE COMMANDS. SBP GOAL IS LESS THAN 150. VITAL SIGNS STABLE; ON ROOM AIR. DENIES ANY PAIN. VOIDS PER TOILET. PT REMAINS A 1:1 WITH NUCLEAR MEDICINE OFFICER, DUE TO BEING IMPULSIVE AND UNSTEADY ON FEET. TRANSFERS WITH 1-ASSIST/GAIT BELT. NO BM THIS SHIFT. NEED HEMATEST X3. INCISION TO L)SIDE OF HEAD OPEN TO AIR/EDGES APPROXIMATED WITH NO DRAINAGE NOTED. PICC LINE TO R)UPPER ARM SALINE LOCKED; INTERMITTENT ANTIBIOTICS. AC/HS ACCUCHECKS WITH MILD SLIDING SCALE. Follow up: CONTINUE TO MONITOR
--- NOTE | 2017-04-13 03:59 | NUR ---
Significant Event: PATIENT ALERT, ORIENTED TO SELF, DISORIENTED TO TIME AND PLACE THIS SHIFT. PUPILS EQUAL AND REACTIVE. DENIES ANY NUMBNESS/TINGLING. SBPs 123-151. HRs 73-80 THIS SHIFT. O2 SATS IN THE HIGH 90s ON ROOM AIR. BREATH SOUNDS CLEAR AND DIMINISHED. SPEECH IS CLEAR. FORGETFUL COMMENTS AT TIMES. DENIES ANY PAIN. TYLENOL GIVEN AT 0315 FOR 100.4 TEMP. VOIDS PER TOILET. 1 ASSIST WITH GAITBELT. 0 BM THIS SHIFT. NEED HEMOTEST X3. PICC TO RIGHT UPPER ARM WITH ABX RUNNING. AC/HS ACCU CHECKS WITH MILD SLIDING SCALE. SODIUM LEVEL WENT FROM 149-140. DR. MICHAEL NOTIFIED. PATIENT COMPLIANT WITH CARES THIS SHIFT. Follow up:
[2017-04-13 05:07] LABS: ALBUMIN 2.5 gm/dL (3.5-5.0); ANION GAP 10.3 (10.0-19.0); BLOOD UREA NITROGEN 10 mg/dL (6-24); CALCIUM 8.5 mg/dL (8.5-10.5); CHLORIDE 109 mMol/L (96-110); CO2 26 mMol/L (22-32); CREATININE 0.5 mg/dL (0.5-1.1); PHOSPHORUS 3.5 mg/dL (2.5-4.9); POTASSIUM 3.3 mMol/L (3.7-5.1); SODIUM 142 mMol/L (135-145)
[2017-04-13 05:25] LABS: BASOPHIL % 0.4 %; EOSINOPHIL # 0.1 K/uL (0.0-0.5); EOSINOPHIL % 2.1 %; HEMATOCRIT 23.6 % (33.0-46.0); IMMATURE GRANULOCYTE % 0.2 %; LYMPHOCYTE # 1.5 K/uL (0.8-4.0); LYMPHOCYTE % 28.8 %; MCH 32.6 pg (27.0-34.0); MCHC 32.2 gm/dL (32.0-36.5); MCV 101.3 fl (83.0-98.0); MONOCYTE # 0.4 K/uL (0.0-1.0); MONOCYTE % 7.5 %; MPV 9.5 fl (9.4-12.4); NEUTROPHIL # (ANC) 3.2 K/uL (1.8-7.8); NRBC % 0 /100WBC (0-0.00); PLATELET COUNT 364 K/uL (150-450); RBC 2.33 M/uL (3.50-5.50); RDW-CV 14.2 % (11.9-14.6); WBC 5.2 K/uL (4.0-11.0)
[2017-04-13 05:30] LABS: HEMOGLOBIN 7.6 g/dL (10.0-15.0)
--- NOTE | 2017-04-13 11:45 | NUR ---
Azul called [facility] and they will consider patient when off 1:1. Spoke with patient and son. She says she can go home and son says they want inpatient rehab. Patient is still impulsive and has cognitive issues. Son says he will be home with her, with help from a sister and patient's S.O. when they are not working. Son talks about liking to sleep in and some concern about mornings and her needing to be clearer. Reinforced to him she will need someone with her 28/02 and he may have to adjust his habits for awhile to help her. Talked to nursing and they are trying 15 minute checks. Will follow.
--- NOTE | 2017-04-13 15:34 | NUR ---
Significant Event:Patient is alert to self only. Disoriented to place and time. Aphasic. Perrla. Denies numbness or tingling. Follows commands and moves extremities spontaneously. Equal strength noted throughout. VSS on room air. Lungs clear throughout. Hematest times 1 this shift, still need to hematest stools times 2. Bowel sounds active. Patient voids per the bathroom with 1 assist and gaitbelt. Can be unsteady at times. Incision to the left head is intact. Judy intact. ACHS accu checks, no coverage needed this shift. Refused calf pumps. No s/s or complaints of pain. 15 minute checks, hi-lo bed in place. PICC to her right upper arm is intact, saline locked, flushes well with good blood return to both lumens. Dressing to be changed tomorrow. Regular diet. Patient takes medications without difficulty. IV antibiotics dc'd this shift. Follow up:GIRP vs home
[2017-04-14 06:43] LABS: BASOPHIL % 0.6 %; EOSINOPHIL # 0.1 K/uL (0.0-0.5); EOSINOPHIL % 2.2 %; HEMATOCRIT 24.3 % (33.0-46.0); IMMATURE GRANULOCYTE % 0.2 %; LYMPHOCYTE # 1.4 K/uL (0.8-4.0); LYMPHOCYTE % 27.1 %; MCH 32.2 pg (27.0-34.0); MCHC 31.7 gm/dL (32.0-36.5); MCV 101.7 fl (83.0-98.0); MONOCYTE # 0.4 K/uL (0.0-1.0); MONOCYTE % 7.2 %; MPV 9.1 fl (9.4-12.4); NEUTROPHIL # (ANC) 3.1 K/uL (1.8-7.8); NEUTROPHIL % 62.7 %; NRBC % 0 /100WBC (0-0.00); PLATELET COUNT 397 K/uL (150-450); RBC 2.39 M/uL (3.50-5.50); RDW-CV 14.1 % (11.9-14.6)
[2017-04-14 06:57] LABS: ANION GAP 7.6 (10.0-19.0); BLOOD UREA NITROGEN 8 mg/dL (6-24); CALCIUM 8.8 mg/dL (8.5-10.5); CHLORIDE 108 mMol/L (96-110); CO2 28 mMol/L (22-32); CREATININE 0.4 mg/dL (0.5-1.1); POTASSIUM 3.6 mMol/L (3.7-5.1); SODIUM 140 mMol/L (135-145)
[2017-04-14 06:58] LABS: HEMOGLOBIN 7.7 g/dL (10.0-15.0)
[2017-04-14 07:02] LABS: MAGNESIUM 2.3 mg/dL (1.8-2.6); PHOSPHORUS 3.5 mg/dL (2.5-4.9)
--- NOTE | 2017-04-14 07:45 | NUR ---
Significant Event: Patient is alert to self. Aphasic. Disorganized speech. Says, "You know what I mean" frequently. Follows commands. RA. Lungs clear. BS active. No bm. Voids per toilet, ambulates SBA. PICC to DONTA SL. Regular diet. ACHS accuchecks. Horseshoe incision to head, dorinda intact. Less impulsive as boyfriend was at bedside throughout night. Follow up: Rehab vs home
--- NOTE | 2017-04-14 13:30 | NUR ---
Spoke with patient and her S.O. She says she wants to go home. Talked with them about her going home with some one with her 28/02 and maybe [facility] versus going to inpatient rehab. S.O. encourages her to go to inpatient rehab for more intense rehab. She says she hears what we are saying but is not ready to make a decision and wants to talk with family more. Did leave [facility] for [facility] to see if they will accept her and if they have beds. Will follow.
[2017-04-15 05:15] LABS: CALCIUM 8.8 mg/dL (8.5-10.5); CHLORIDE 108 mMol/L (96-110); CO2 28 mMol/L (22-32); CREATININE 0.5 mg/dL (0.5-1.1); MAGNESIUM 2.4 mg/dL (1.8-2.6); PHOSPHORUS 3.8 mg/dL (2.5-4.9); SODIUM 141 mMol/L (135-145)
[2017-04-15 05:18] LABS: BLOOD UREA NITROGEN 16 mg/dL (6-24)
--- NOTE | 2017-04-15 06:22 | NUR ---
Significant Event: ALERT TO SELF, . DENIES N/T. MODERATE, EQUAL STRENGTH. SINUS RHYTHM, SBP IN 130S-140S. LUNGS CLEAR AND DIMINISHED ON ROOM AIR. UP SBA TO BATHROOM. NEEDS HEMATEST X2. HORSESHOE INCISION TO LEFT HEAD. RIGHT UPPER ARM PICC SALINE LOCKED. DENIES PAIN. REGULAR DIET. Follow up: HOME VS REHAB.
--- NOTE | 2017-04-15 11:56 | NUR ---
Talked to [facility] on [facility] and they are considering patient, but would not be able to accept until Tuesday, 04/18. She will let me know their final decision. Note on chart. No family present at this time and patient sleeping. Will follow.
--- NOTE | 2017-04-15 14:45 | NUR ---
[facility] will accept patient on Wednesday 04/18 at 0900. Will follow.
--- NOTE | 2017-04-15 15:20 | NUR ---
Significant Event: Alert to self and , unsure of month/year/location. Pupils 3mm brisk. Denies N/T, pain or MTZ. Equal moderate strength throughout all extremities, moves spontaneously and to command. SBP 130-160's, HR 50-70's, absent edema, 2+ pulses. L.S. clear on RA. B.S. active, last BM 04/13. Urinates per SBA to BR. R) upper arm PICC double lumen SL'd. Regular diet. Follow up: Transfer to [facility] when ready and or beds available.
[2017-04-16 04:53] LABS: ANION GAP 8.9 (10.0-19.0); BLOOD UREA NITROGEN 16 mg/dL (6-24); CALCIUM 8.7 mg/dL (8.5-10.5); CHLORIDE 109 mMol/L (96-110); CO2 27 mMol/L (22-32); CREATININE 0.5 mg/dL (0.5-1.1); MAGNESIUM 2.3 mg/dL (1.8-2.6); PHOSPHORUS 3.4 mg/dL (2.5-4.9); POTASSIUM 3.9 mMol/L (3.7-5.1); SODIUM 141 mMol/L (135-145)
--- NOTE | 2017-04-16 05:16 | NUR ---
Significant Event: PATIENT IS ALERT/ORIENTED TO SELF, ET FAMILY MEMBERS ONLY. SPEECH FAST ET APHASIC, UNABLE TO STAY WITH CONVERSATIONS BEING HELD, STRAYS OFF WITH UNRELATED TOPICS. MODERATE, EQUAL STRENGTH THROUGHOUT, PUPILS 4 ET BRISK. HORSESHOE INCISION TO LEFT HEAD SCABBED IN AREAS, WELL APPROXIMATED, NO DRAINAGE. SBA FOR TRANSFERS, VOIDS PER BATHROOM. WENT OUTSIDE WITH FAMILY FOR APPROX 30 MINUTES THIS EVENING, PORTABLE TELE ON. DAUGHTER RADHA PRESENT, INFORMS ME THAT HER OLDER SIBLING, A BROTHER, WOULD NOT LIKE TO PARTICIPATE IN THE PATIENTS CARE ANY LONGER AND THAT DECISION MAKING WILL BE LEFT TO RADHA. RADHA WOULD LIKE INFO ON FUTURE PLACEMENT ET INSURANCE QUALIFICATIONS, DIRECTED HER TO CASE MANAGEMENT. Follow up:TRANSFER TO INPATIENT REHAB WEDNESDAY 04/18
--- NOTE | 2017-04-16 17:29 | NUR ---
Significant Event: PT ALERT; ORIENTED TO SELF/BIRTHDAY. FOLLOWS COMMANDS. MODERATE, EQUAL STRENGTH X4. PERRLA. AMBULATES WITH STAND-BY ASSIST/GAIT BELT. IMPULSIVE AT TIMES. HYPERTENSIVE WITH SBP'S IN THE 150'S-160'S. SCHEDULED BP MEDICATIONS GIVEN. VOIDS PER TOILET. BM X1 THIS SHIFT PER PT REPORT. HORSESHOE INCISION TO L)HEAD OPEN TO AIR; NO DRAINAGE NOTED. PICC LINE TO R)UPPER ARM SALINE LOCKED. GOOD APPETITE; REGULAR DIET. DENIES ANY PAIN. 1 MG IV HALDOL GIVEN X1 FOR AGITATION, WITH SOME RELIEF. PT WENT OUTSIDE THIS AFTERNOON WITH STAFF AND AMBULATED IN THE HALLS NUMEROUS TIMES DUE TO AGITATION. Follow up: [facility] FOR [facility] ON TUESDAY
[2017-04-17 04:59] LABS: ANION GAP 9.7 (10.0-19.0); BLOOD UREA NITROGEN 13 mg/dL (6-24); CALCIUM 8.8 mg/dL (8.5-10.5); CHLORIDE 110 mMol/L (96-110); CO2 27 mMol/L (22-32); CREATININE 0.5 mg/dL (0.5-1.1); MAGNESIUM 2.4 mg/dL (1.8-2.6); PHOSPHORUS 3.6 mg/dL (2.5-4.9); POTASSIUM 3.7 mMol/L (3.7-5.1); SODIUM 143 mMol/L (135-145)
--- NOTE | 2017-04-17 05:45 | NUR ---
Significant Event: Patient is alert to self and month. Disoriented to year and place. Forgetful. Aphasic. VSS on room air. MD order okay to have no tele. PERRLA. Equal strength throughout. Denies any numbness or tingling. Up with stand by assist. Impulsive, bed alarms on at all times. Voiding well. Incision to left side of head healing well, edges approximated. Incision to top right side of head, edges approximated. Right double lumen PICC, saline locked. Denies any pain. Patient has been pleasant and cooperative with cares. Follow up: Plan is to transfer to [facility] on Tuesday
--- NOTE | 2017-04-17 17:17 | NUR ---
Significant Event:Patient rested most of the day. Denies pain or headache. Is cooperative. Pupils 3m and brisk. LS clear. Abd soft. No stool, voiding well. VSS. Eating well. Is forgetful and impulsive. Slept off and on today. Plan to transfer to [facility] tomorrow at 0900. Follow up:Needs PICC line drsg changed.
[2017-04-18 03:37] LABS: BLOOD UREA NITROGEN 16 mg/dL (6-24); CALCIUM 8.6 mg/dL (8.5-10.5); CHLORIDE 110 mMol/L (96-110); CO2 29 mMol/L (22-32); CREATININE 0.4 mg/dL (0.5-1.1); MAGNESIUM 2.2 mg/dL (1.8-2.6); PHOSPHORUS 3.3 mg/dL (2.5-4.9); SODIUM 143 mMol/L (135-145)
--- NOTE | 2017-04-18 05:17 | NUR ---
Significant Event: PATIENT HAS BEEN ALERT AND ORIENTED TO SELF- DOES KNOW AND YEAR (READS THE BOARD). FOLLOWS COMMANDS. TALKATIVE. EQUAL MODERATE STRENGTH THROUGHOUT. PERRLA. VSS. AFEBRILE. HTN- 130-160'S. HR 60-70. ROOM AIR. REGULAR DIET. UP SBA/SUPERVISION TO BATHROOM. CAN BE IMPULSIVE. INCISIONS ARE APPROXIMATED AND OPEN TO AREA. R) DBL LUMEN PICC-SL'D & DRESSING CHANGED. Follow up: [facility] TODAY AT 0900.
--- NOTE | 2017-04-18 08:37 | NUR ---
A&O TO SELF, TALKATIVE/WORD SALAD. SBA. VSS. LS CLEAR. BS ACTIVE, BM 04/17, VD PER BR. TAKES MEDS WHOLE REG DIET. PERRLA 3MM/BRISK. EQUAL AND STRONG THROUGHOUT. CSM WNL. TRANSFER TO [facility] AT 0900
== END 2017-04-18 08:50 | DRG 20 ==
LOC: GMED 06:50 → GICU 07:18
PROVIDERS: Anesthesiology Critical Care Medicine; Family Medicine; Internal Medicine; ADMIT Neurological Surgery
DX: I60.8 Other nontraumatic subarachnoid hemorrhage (principal); G93.40 Encephalopathy, unspecified; J96.01 Acute respiratory failure with hypoxia; G91.9 Hydrocephalus, unspecified; D62 Acute posthemorrhagic anemia; Z78.1 Physical restraint status; R65.10 Systemic inflammatory response syndrome (SIRS) of non-infectious origin without acute organ dysfunction; I10 Essential (primary) hypertension; G93.2 Benign intracranial hypertension; E87.6 Hypokalemia; F17.210 Nicotine dependence, cigarettes, uncomplicated; D72.829 Elevated white blood cell count, unspecified
CPT/HCPCS: C1713; C1751; C9113; G0008; J0290; J0360; J0690; J0692; J1170; J1630; J1953; J2060; J2270; J2440; J2704; J2997; J3370; J3475; J3480; J7030; J7040; J7050; Q9967

== ENCOUNTER → 2017-03-29 | Outpatient (CLI) | payer OTHER ==
[~2017-03-29] MED LIST: EXCEDRIN TENSI1 EACH PO
== END | disposition disaster alternative care site (69) ==
LOC: GAMB 06:34
DX: R40.20 Unspecified coma (principal)
CPT/HCPCS: A0425; A0428